=== PATIENT | female | born 1995 | race Caucasian/White ===

== ENCOUNTER 2022-01-28 20:38 | Emergency (ER) | payer MEDICAID, SELFPAY ==
[2022-01-28 20:55] VITALS: BP 115/60; PULSE 82; RESP 18; TEMP 36.6; O2SAT 99; BMI 41.2
--- NOTE | 2022-01-28 21:31 | ED_ITS ---
HPI - General Adult General Chief complaint: Shoulder Injury/Pain Stated complaint: L Shoulder and Arm Pain Time Seen by Provider: 01/28/22 20:52 History of Present Illness HPI narrative: Patient is a 26-year-old woman who for the last week has had pain over the anterior shoulder but the no recent injuries. She has had no fevers no chills. She has had no radicular symptoms. Related Data Home Medications Medication Instructions Recorded Confirmed albuterol sulfate 2.5 mg/3 mL mg 01/28/22 (0.083 %) solution for nebulization albuterol sulfate 90 mcg/actuation INHALATION 01/28/22 aerosol inhaler (Ventolin HFA) buspirone 15 mg tablet mg 01/28/22 cetirizine 10 mg tablet mg 01/28/22 famotidine 20 mg tablet mg 01/28/22 fluticasone propionate 50 INTRANASAL 01/28/22 mcg/actuation nasal spray,suspension hydroxyzine pamoate 25 mg capsule mg 01/28/22 lamotrigine 100 mg tablet mg 01/28/22 lamotrigine 25 mg tablet mg 01/28/22 meclizine 25 mg tablet mg 01/28/22 nystatin 100,000 unit/gram topical TOPICAL 01/28/22 cream ondansetron 4 mg disintegrating mg 01/28/22 tablet prazosin 1 mg capsule mg 01/28/22 venlafaxine 150 mg mg PO 01/28/22 capsule,extended release 24 hr venlafaxine 75 mg capsule,extended mg PO 01/28/22 release 24 hr Allergies Allergy/AdvReac Type Severity Reaction Status Date / Time amoxicillin Allergy Mild Verified 01/28/22 21:03 Penicillanic Sulfone BL Allergy Mild Verified 01/28/22 21:02 Beta-Lactam Review of Systems Status of ROS: Reports: 10 or more systems reviewed and unremarkable except as noted in History and below Exam Narrative: Exam Narrative: EXAM GENERAL: Patient appears comfortable and well. EYES: No scleral icterus. LYMPH: No supraclavicular or cervical lymphadenopathy. SKIN: Visible skin seen during exam normal or with benign process only. EXT: No dependent lower extremity pedal edema. extreme tenderness noted over the right acromioclavicular joint no other palpable abnormalities HEART: Regular rate and rhythm with no murmurs, rubs, or gallops. LUNGS: Clear to auscultation bilaterally with no crackles or wheezes. ABD: Soft, non tender, non distended. PSYCH: Good eye contact, speech is not pressured. Const: Vital Signs, click to edit/add: Vital Signs - 24 hr 01/28/22 20:55 Temperature 97.9 F Pulse Rate [Right Pulse Oximeter] 82 Respiratory Rate 18 Blood Pressure [Ri ght Upper Arm] 115/60 Pulse Oximetry 99 Course Vital Signs Vital signs: Initial Vital Signs Temperature 97.9 F 01/28/22 20:55 Temperature Source Temporal Artery Scan 01/28/22 20:55 Pulse Rate 82 01/28/22 20:55 Pulse Rhythm 01/28/22 20:55 Respiratory Rate 18 01/28/22 20:55 Blood Pressure 115/60 01/28/22 20:55 Blood Pressure Mean 78 01/28/22 20:55 Blood Pressure Position Sitting 01/28/22 20:55 Pulse Oximetry 99 01/28/22 20:55 Oxygen Delivery Method 01/28/22 20:55 Vital Signs Temperature 97.9 F 01/28/22 20:55 Pulse Rate 82 01/28/22 20:55 Respiratory Rate 18 01/28/22 20:55 Blood Pressure 115/60 01/28/22 20:55 Pulse Oximetry 99 01/28/22 20:55 Temperature 97.9 F 01/28/22 20:55 Pulse Rate 82 01/28/22 20:55 Respiratory Rate 18 01/28/22 20:55 Blood Pressure 115/60 01/28/22 20:55 Pulse Oximetry 99 01/28/22 20:55 Discharge Plan Discharge Clinical Impression: Strain of AC joint Patient Disposition: Home, Self-Care Condition: Stable Instructions: Muscle Strain (ED) Additional Instructions: Prednisone 20 mg twice daily for 5 days Activity Level: No Restrictions Discharge Diet: Regular Prescriptions: No Action venlafaxine 75 mg capsule,extended release 24hr PO 0RF Label Comments: Take 1 capsule by mouth in combination with 150mg capsule for a total daily dose of 225mg. Take with food albuterol sulfate 2.5 mg /3 mL (0.083 %) solution for nebulization 0RF Label Comments: Inhale 3 mL (2.5 mg) via a nebulizer every 4 hours if needed for Shortness of Breath cetirizine 10 mg tablet 0RF Label Comments: TAKE ONE TABLET BY MOUTH ONE TIME DAILY prazosin 1 mg capsule 0RF Label Comments: TAKE ONE CAPSULE BY MOUTH ONE TIME DAILY AT BEDTIME venlafaxine 150 mg capsule,extended release 24hr PO 0RF Label Comments: Take 1 capsule once daily with food with the 75 mg capsule for a total daily dose of 225 mg lamotrigine 25 mg tablet 0RF Label Comments: Week 1 & 2: Take 1 tablet (25mg) by mouth once daily; Week 3 & 4: Take 2 tablets (50mg) by mouth once daily; Week 5: Switch to the 100mg tab famotidine 20 mg tablet 0RF Label Comments: TAKE ONE TABLET BY MOUTH TWICE DAILY meclizine 25 mg tablet 0RF Label Comments: TAKE ONE TABLET BY MOUTH THREE TIMES DAILY NEEDED for vertigo nystatin 100,000 unit/gram cream TOPICAL 0RF Label Comments: Apply topically to affected area(s) 2 times daily. albuterol sulfate [Ventolin HFA] 90 mcg/actuation HFA aerosol inhaler INHALATION 0RF Label Comments: INHALE TWO PUFFS BY MOUTH EVERY SIX HOURS NEEDED FOR PERSISTANT COUGH. ondansetron 4 mg tablet,disintegrating 0RF Label Comments: Place 1 Tablet (4 mg) on the tongue every 8 hours if needed for Nausea/Vomiting. fluticasone propionate 50 mcg/actuation spray,suspension INTRANASAL 0RF Label Comments: Inhale 2 Sprays to both nostrils once daily lamotrigine 100 mg tablet 0RF Label Comments: TAKE ONE TABLET BY MOUTH ONE TIME DAILY buspirone 15 mg tablet 0RF Label Comments: TAKE ONE TABLET BY MOUTH TWICE DAILY hydroxyzine pamoate 25 mg capsule 0RF Label Comments: TAKE ONE OR TWO CAPSULES BY MOUTH AT BEDTIME NEEDED for anxiety Follow Up/Referrals: Vicki Rose MD [Primary Care Provider] - Stand Alone Forms: [facility] Info Instructions
[2022-01-28 21:55] VITALS: BP 114/72; PULSE 67; RESP 18; O2SAT 99
== END 2022-01-28 22:04 | disposition home or self-care (01) ==
LOC: ED 21:48
PROVIDERS: Emergency Provider Internal Medicine; PCP Family Medicine
DX: S46.812A Strain of other muscles, fascia and tendons at shoulder and upper arm level, left arm, initial encounter (principal)
CPT/HCPCS: 99282; 99283; 99284

== ENCOUNTER 2022-03-27 16:30 | Outpatient (RCR) | payer MEDICAID, SELFPAY | END 2022-04-25 11:45 | disposition home or self-care (01) | PROVIDERS: PCP Family Medicine; Visit Provider Student in an Organized Health Care Education/Training Program | DX: S46.812A Strain of other muscles, fascia and tendons at shoulder and upper arm level, left arm, initial encounter (principal); Z51.89 Encounter for other specified aftercare | CPT/HCPCS: 97110; 97112; 97140; 97161; 97530 ==

== ENCOUNTER 2022-05-03 15:09 | Emergency (ER) | payer MEDICAID, SELFPAY ==
[2022-05-03 15:53] VITALS: BP 120/78; PULSE 86; RESP 16; TEMP 36.7; O2SAT 100; BMI 41.0
--- NOTE | 2022-05-03 18:51 | ED.GENADULT ---
HPI - General Adult General Chief complaint: Abdominal Pain Stated complaint: Needs CT of abdomen Time Seen by Provider: 05/03/22 18:35 Source: patient Mode of arrival: ambulatory Limitations: no limitations History of Present Illness HPI narrative: 26-year-old female coming in today with abdominal pain. States the pains and present for over a week. The pain is located in the epigastric region wraps around both sides. Moving or eating makes the pain worse. Nothing really seems to make it better. She denies any fevers or chills. She feels nauseated but has not vomited. She has daily/regular bowel movements without discomfort. She denies any urinary symptoms such as frequency, urgency or dysuria. Periods have been normal. Patient was seen 2 days ago and had an abdominal CT scan done. The CT scan was read as punctate calcifications in the left kidney with a small cluster of punctate stones located in the lower pole collecting system. The also some a transient intussusception of the jejunum without mechanical obstruction. This likely represents an incidental transient phenomenon. One could consider GI consult for further evaluation of this finding. No evidence of inflammatory bowel disease. Normal appendix. 3.5 cm simple left ovarian cyst considered normal. Patient also had lab work done which she was told were normal. Patient had a follow-up appointment with her physician today who recommended she go to the ER for repeat CT scan. Patient states that her pain really has not changed a whole lot. It does not make her double over in pain. Again she has normal bowel movements and has not been vomiting. Her past medical history significant for anxiety, depression, mood disorder. She is on a venlafaxine, lamotrigine, buspirone, hydroxyzine, prazosin. She is taking famotidine 20 mg b.i.d. p.r.n.. She has had her gallbladder out. Related Data Home Medications Medication Instructions Recorded Confirmed albuterol sulfate 2.5 mg/3 mL 2.5 mg inhalation Q4H PRN 01/28/22 05/03/22 (0.083 %) solution for nebulization albuterol sulfate 90 mcg/actuation 1 puff inhalation PRN 01/28/22 aerosol inhaler (Ventolin HFA) buspirone 15 mg tablet 10 mg PO BID 01/28/22 05/03/22 cetirizine 10 mg tablet 10 mg PO Q12H 01/28/22 05/03/22 famotidine 20 mg tablet 20 mg PO Q12H 01/28/22 05/03/22 fluticasone propionate 50 2 spray intranasal DAILY 01/28/22 05/03/22 mcg/actuation nasal spray,suspension hydroxyzine pamoate 25 mg capsule 25 mg PO HS PRN 01/28/22 05/03/22 lamotrigine 100 mg tablet 100 mg PO DAILY 01/28/22 05/03/22 lamotrigine 25 mg tablet mg 01/28/22 meclizine 25 mg tablet mg 01/28/22 nystatin 100,000 unit/gram topical 1 applic topical PRN 01/28/22 cream ondansetron 4 mg disintegrating 4 mg PO PRN 01/28/22 tablet prazosin 1 mg capsule 1 mg PO HS 01/28/22 05/03/22 venlafaxine 150 mg 150 mg PO DAILY 01/28/22 05/03/22 capsule,extended release 24 hr venlafaxine 75 mg capsule,extended 75 mg PO DAILY 01/28/22 05/03/22 release 24 hr Previous Rx's Medication Instructions Recorded sucralfate 1 gram tablet (Carafate) 1 g PO QID PRN #60 tabs 05/03/22 Allergies Allergy/AdvReac Type Severity Reaction Status Date / Time amoxicillin Allergy Mild Verified 05/03/22 16:02 Penicillanic Sulfone BL Allergy Mild Verified 05/03/22 16:02 Beta-Lactam Review of Systems Status of ROS: Reports: 10 or more systems reviewed and unremarkable except as noted in History and below PFSH PFS Social History Smoking Status: Current every day smoker Do you use any of these nicotine containing products: None Second hand tobacco smoke exposure: No How often do you have a drink containing alcohol: monthly or less How often do you have six or more drinks on one occasion: Never AUDIT-C Alcohol total score: 1 Non-prescribed substance use: marijuana (any form) Exam Narrative: Exam Narrative: Well-nourished well-developed patient in no acute distress. Alert and oriented. Answers questions appropriately. Mood and affect are appropriate. Thoughts are goal oriented and rational. No tangential or magical thinking noted. Patient speaks in full sentences without needing to catch their breath. Patient does not appear ill or toxic. She ambulates without any difficulty. HEENT: Normocephalic atraumatic. Pupils are equally round reactive to light. Extraocular muscles are intact. Conjunctivae are moist without any icterus noted. Moist mucous membranes. Posterior pharynx is normal. Neck is soft without any lymphadenopathy or thyromegaly. No masses are appreciated. Cardiovascular: Heart is regular rate and rhythm S1 and S2 are present without any murmurs. Lungs: Clear to auscultation bilaterally no wheezes rhonchi or rales are appreciated. Patient takes deep breaths without any discomfort. Abdomen: Soft and nondistended with normal bowel sounds. Patient has epigastric discomfort, negative Strange sign. She has nonspecific discomfort with very light touch of the remainder of the abdomen as well, however, she can be distracted. Extremities: Bilateral lower extremities are without edema. Normal DP and PT pulses. Skin: Well perfused without any obvious rashes. Const: Vital Signs, click to edit/add: Vital Signs - 24 hr 05/03/22 15:53 Temperature 98.0 F Pulse Rate [Right Pulse Oximeter] 86 Respiratory Rate 16 Blood Pressure [Ri ght Upper Arm] 120/78 Pulse Oximetry 100 Oxygen Delivery Me thod Room Air Course Vital Signs Vital signs: Initial Vital Signs Temperature 98.0 F 05/03/22 15:53 Temperature Source Temporal Artery Scan 05/03/22 15:53 Pulse Rate 86 05/03/22 15:53 Respiratory Rate 16 05/03/22 15:53 Blood Pressure 120/78 05/03/22 15:53 Blood Pressure Mean 92 05/03/22 15:53 Blood Pressure Position Sitting 05/03/22 15:53 Pulse Oximetry 100 05/03/22 15:53 Oxygen Delivery Method 05/03/22 15:53 Vital Signs Temperature 98.0 F 05/03/22 15:53 Pulse Rate 86 05/03/22 15:53 Respiratory Rate 16 05/03/22 15:53 Blood Pressure 120/78 05/03/22 15:53 Pulse Oximetry 100 05/03/22 15:53 Oxygen Delivery Method 05/03/22 15:53 Temperature 98.0 F 05/03/22 15:53 Pulse Rate 86 05/03/22 15:53 Respiratory Rate 16 05/03/22 15:53 Blood Pressure 120/78 05/03/22 15:53 Pulse Oximetry 100 05/03/22 15:53 Oxygen Delivery Method 05/03/22 15:53 Medical Decision Making [facility] Narrative Medical decision making narrative: 26-year-old female with epigastric abdominal pain, normal labs per patient and no acute findings on CT scan aside from jejunal intussusception without mechanical obstruction or inflammatory change, likely representing an incidental transient phenomenon. Given that this was done 2 days ago and patient continues to have normal bowel movements, no vomiting and no fevers I do not think a repeat CT scan at this time is necessary. I do recommend she follow up with GI to have a discussion if this needs any further workup. As far as her epigastric pain we discussed the possibility of gastritis or peptic ulcer disease. I would like for her to start taking daily omeprazole 40 mg, Carafate as needed. If she is not feeling better in the next couple weeks an EGD is recommended. Medical Records Medical records reviewed: Yes I reviewed the patient's medical records Discharge Plan Discharge Clinical Impression: Gastritis Patient Disposition: Home, Self-Care Condition: Stable Additional Instructions: Start omeprazole 40 mg p.o. daily. This is an [id number] medication that you can purchase. You should take this for at least 6 weeks. Take Carafate as needed, this is a prescription medication that you will be given a prescription to. Recommend you follow-up your primary care provider this coming week. Return to the ER if your pain gets worse or you develop a fever. Prescriptions: New sucralfate [Carafate] 1 gram tablet 1 g PO QID PRNQty: 60 0RF No Action venlafaxine 75 mg capsule,extended release 24hr 75 mg PO DAILY Label Comments: Take 1 capsule by mouth in combination with 150mg capsule for a total daily dose of 225mg. Take with food albuterol sulfate 2.5 mg /3 mL (0.083 %) solution for nebulization 2.5 mg inhalation Q4H PRN Label Comments: Inhale 3 mL (2.5 mg) via a nebulizer every 4 hours if needed for Shortness of Breath cetirizine 10 mg tablet 10 mg PO Q12H Label Comments: TAKE ONE TABLET BY MOUTH ONE TIME DAILY prazosin 1 mg capsule 1 mg PO HS Label Comments: TAKE ONE CAPSULE BY MOUTH ONE TIME DAILY AT BEDTIME venlafaxine 150 mg capsule,extended release 24hr 150 mg PO DAILY Label Comments: Take 1 capsule once daily with food with the 75 mg capsule for a total daily dose of 225 mg lamotrigine 25 mg tablet Label Comments: Week 1 & 2: Take 1 tablet (25mg) by mouth once daily; Week 3 & 4: Take 2 tablets (50mg) by mouth once daily; Week 5: Switch to the 100mg tab famotidine 20 mg tablet 20 mg PO Q12H Label Comments: TAKE ONE TABLET BY MOUTH TWICE DAILY meclizine 25 mg tablet Label Comments: TAKE ONE TABLET BY MOUTH THREE TIMES DAILY NEEDED for vertigo nystatin 100,000 unit/gram cream 1 applic TOPICAL PRN Label Comments: Apply topically to affected area(s) 2 times daily. albuterol sulfate [Ventolin HFA] 90 mcg/actuation HFA aerosol inhaler 1 puff INHALATION PRN Label Comments: INHALE TWO PUFFS BY MOUTH EVERY SIX HOURS NEEDED FOR PERSISTANT COUGH. ondansetron 4 mg tablet,disintegrating 4 mg PO PRN Label Comments: Place 1 Tablet (4 mg) on the tongue every 8 hours if needed for Nausea/Vomiting. fluticasone propionate 50 mcg/actuation spray,suspension 2 spray INTRANASAL DAILY Label Comments: Inhale 2 Sprays to both nostrils once daily lamotrigine 100 mg tablet 100 mg PO DAILY Label Comments: TAKE ONE TABLET BY MOUTH ONE TIME DAILY buspirone 15 mg tablet 10 mg PO BID Label Comments: TAKE ONE TABLET BY MOUTH TWICE DAILY hydroxyzine pamoate 25 mg capsule 25 mg PO HS PRN Label Comments: TAKE ONE OR TWO CAPSULES BY MOUTH AT BEDTIME NEEDED for anxiety Follow Up/Referrals: Vicki Rose MD [Primary Care Provider] - Stand Alone Forms: [facility] Info Instructions
[2022-05-03 19:20] VITALS: BP 118/74; PULSE 79; RESP 16; TEMP 36.7; O2SAT 100
[2022-05-03 19:21] VITALS: BP 118/74; PULSE 79; RESP 16; TEMP 36.7
== END 2022-05-03 19:22 | disposition home or self-care (01) ==
PROVIDERS: Emergency Provider Family Medicine; PCP Family Medicine
DX: K29.70 Gastritis, unspecified, without bleeding (principal)
CPT/HCPCS: 99283; 99284

== ENCOUNTER 2022-05-10 21:36 | Emergency (ER) | payer MEDICAID, SELFPAY ==
[2022-05-10 21:42] VITALS: BP 111/74; PULSE 80; RESP 18; TEMP 36.4; O2SAT 98
[2022-05-10] MEDS: 0.9 % SODIUM CHLORIDE 1000 ml 1,000 ML IV (22:12)
[2022-05-10] MEDS: KETOROLAC 30 MG/ML inj IVP (22:15)
[2022-05-10] MEDS: ONDANSETRON 2 MG/ML inj 4 MG IVP (22:16)
--- NOTE | 2022-05-10 22:36 | ED_ITS ---
HPI - General Adult General Chief complaint: Flank Pain Stated complaint: Left flank pain, history of kidney stones Time Seen by Provider: 05/10/22 21:42 History of Present Illness HPI narrative: Pt is a 26 year old with a long history of renal lithiasis who presents with left flank pain. Pt was seen approx. 10 days ago at [facility] with similar symptoms and was told that she had a number of small stones on the left which are small enough to pass on there own. Pt states the pain is the same but has worsened over the past 24 hours. No dysuria. No fevers. Pain is in the left flank without radiation. Pt taking tylenol and motrin with limited success. No nausea or vomiting. The only other medical problem is asthma which has been well controlled. Related Data Home Medications Medication Instructions Recorded Confirmed albuterol sulfate 2.5 mg/3 mL 2.5 mg inhalation Q4H PRN 01/28/22 05/03/22 (0.083 %) solution for nebulization albuterol sulfate 90 mcg/actuation 1 puff inhalation PRN 01/28/22 aerosol inhaler (Ventolin HFA) buspirone 15 mg tablet 10 mg PO BID 01/28/22 05/03/22 cetirizine 10 mg tablet 10 mg PO Q12H 01/28/22 05/03/22 famotidine 20 mg tablet 20 mg PO Q12H 01/28/22 05/03/22 fluticasone propionate 50 2 spray intranasal DAILY 01/28/22 05/03/22 mcg/actuation nasal spray,suspension hydroxyzine pamoate 25 mg capsule 25 mg PO HS PRN 01/28/22 05/03/22 lamotrigine 100 mg tablet 100 mg PO DAILY 01/28/22 05/03/22 lamotrigine 25 mg tablet mg 01/28/22 meclizine 25 mg tablet mg 01/28/22 nystatin 100,000 unit/gram topical 1 applic topical PRN 01/28/22 cream ondansetron 4 mg disintegrating 4 mg PO PRN 01/28/22 tablet prazosin 1 mg capsule 1 mg PO HS 01/28/22 05/03/22 venlafaxine 150 mg 150 mg PO DAILY 01/28/22 05/03/22 capsule,extended release 24 hr venlafaxine 75 mg capsule,extended 75 mg PO DAILY 01/28/22 05/03/22 release 24 hr Previous Rx's Medication Instructions Recorded sucralfate 1 gram tablet (Carafate) 1 g PO QID PRN #60 tabs 05/03/22 Allergies Allergy/AdvReac Type Severity Reaction Status Date / Time amoxicillin Allergy Mild Verified 05/03/22 16:02 Penicillanic Sulfone BL Allergy Mild Verified 05/03/22 16:02 Beta-Lactam Review of Systems Status of ROS: Reports: 10 or more systems reviewed and unremarkable except as noted in History and below [facility] Medical History (Updated 05/10/22 @ 23:27 by Yonatan Degroot MD) Asthma Kidney stones Social History Smoking Status: Current every day smoker Do you use any of these nicotine containing products: None Second hand tobacco smoke exposure: No How often do you have a drink containing alcohol: monthly or less How often do you have six or more drinks on one occasion: Never AUDIT-C Alcohol total score: 1 Non-prescribed substance use: marijuana (any form) Exam Narrative: Exam Narrative: EXAM GENERAL: Patient appears comfortable and well. EYES: No scleral icterus. LYMPH: No supraclavicular or cervical lymphadenopathy. SKIN: Visible skin seen during exam normal or with benign process only. EXT: No dependent lower extremity pedal edema. HEART: Regular rate and rhythm with no murmurs, rubs, or gallops. LUNGS: Clear to auscultation bilaterally with no crackles or wheezes. ABD: Soft, non tender, non distended. PSYCH: Good eye contact, speech is not pressured. Const: Vital Signs, click to edit/add: Vital Signs - 24 hr 05/10/22 21:42 Temperature 97.5 F L Pulse Rate [Left P ulse Oximeter] 80 Respiratory Rate 18 Blood Pressure [Ri ght Upper Arm] 111/74 Pulse Oximetry 98 Oxygen Delivery Me thod Room Air Course Course Hospital Course: Pt seen and examined. Pt reluctant to repeat CT scan due to recent scan. Pt treated with normal saline, toradol and zofran. Reevaluation(s) Reevaluation #1: Pt feeling better. UA collected. No signs of systemic infection. Time: 22:54 Reevaluation #2: Pt's UA unremarkable Time: 23:24 Vital Signs Vital signs: Initial Vital Signs Temperature 97.5 F L 05/10/22 21:42 Temperature Source Temporal Artery Scan 05/10/22 21:42 Pulse Rate 80 05/10/22 21:42 Pulse Rhythm 05/10/22 21:42 Respiratory Rate 18 05/10/22 21:42 Blood Pressure 111/74 05/10/22 21:42 Blood Pressure Mean 86 05/10/22 21:42 Blood Pressure Position Sitting 05/10/22 21:42 Pulse Oximetry 98 05/10/22 21:42 Oxygen Delivery Method 05/10/22 21:42 Vital Signs Temperature 97.5 F L 05/10/22 21:42 Pulse Rate 80 05/10/22 21:42 Respiratory Rate 18 05/10/22 21:42 Blood Pressure 111/74 05/10/22 21:42 Pulse Oximetry 98 05/10/22 21:42 Oxygen Delivery Method 05/10/22 21:42 Temperature 97.5 F L 05/10/22 21:42 Pulse Rate 80 05/10/22 21:42 Respiratory Rate 18 05/10/22 21:42 Blood Pressure 111/74 05/10/22 21:42 Pulse Oximetry 98 05/10/22 21:42 Oxygen Delivery Method 05/10/22 21:42 Medical Decision Making MDM Narrative Medical decision making narrative: Pt with a history of renal lithiasis and a recent CT scan showing small stones likely to pass presents with left flank pain. Pt improved with normal saline, toradol and zofran. UA unremarkable. Pt declines repeat CT scan. Pt on a number of meds as an outpt. Will add [place] in the short term with PCP follow up. Differential Diagnosis Differential Diagnosis: Renal Lithiasis, Abd Visceral pain, muscle pain, UTI, Pyelonephritis Lab Data Labs: Lab Results 05/10/22 Range/Units 22:45 Urine Color Yellow (Yellow) Urine Appearance Clear (Clear) Urine pH 6.0 (5.0-8.5) Ur Specific [place] 1.020 (1.000-1.030) Urine Protein Negative (Negative) Urine Glucose (UA) Negative (Negative) Urine Ketones 2+ A (Negative) Urine Blood 2+ A (Negative) Urine Nitrite Negative (Negative) Urine Bilirubin Negative (Negative) Urine Urobilinogen 0.2 (0.2-1.0) Ur Leukocyte Esterase Negative (Negative) Discharge Plan Discharge Clinical Impression: Kidney calculi Condition: Stable Instructions: Kidney Stones (ED) Activity Level: No Restrictions Discharge Diet: Regular Prescriptions: No Action venlafaxine 75 mg capsule,extended release 24hr 75 mg PO DAILY Label Comments: Take 1 capsule by mouth in combination with 150mg capsule for a total daily dose of 225mg. Take with food albuterol sulfate 2.5 mg /3 mL (0.083 %) solution for nebulization 2.5 mg inhalation Q4H PRN Label Comments: Inhale 3 mL (2.5 mg) via a nebulizer every 4 hours if needed for Shortness of Breath cetirizine 10 mg tablet 10 mg PO Q12H Label Comments: TAKE ONE TABLET BY MOUTH ONE TIME DAILY prazosin 1 mg capsule 1 mg PO HS Label Comments: TAKE ONE CAPSULE BY MOUTH ONE TIME DAILY AT BEDTIME venlafaxine 150 mg capsule,extended release 24hr 150 mg PO DAILY Label Comments: Take 1 capsule once daily with food with the 75 mg capsule for a total daily dose of 225 mg lamotrigine 25 mg tablet Label Comments: Week 1 & 2: Take 1 tablet (25mg) by mouth once daily; Week 3 & 4: Take 2 tablets (50mg) by mouth once daily; Week 5: Switch to the 100mg tab famotidine 20 mg tablet 20 mg PO Q12H Label Comments: TAKE ONE TABLET BY MOUTH TWICE DAILY meclizine 25 mg tablet Label Comments: TAKE ONE TABLET BY MOUTH THREE TIMES DAILY NEEDED for vertigo nystatin 100,000 unit/gram cream 1 applic TOPICAL PRN Label Comments: Apply topically to affected area(s) 2 times daily. albuterol sulfate [Ventolin HFA] 90 mcg/actuation HFA aerosol inhaler 1 puff INHALATION PRN Label Comments: INHALE TWO PUFFS BY MOUTH EVERY SIX HOURS NEEDED FOR PERSISTANT COUGH. ondansetron 4 mg tablet,disintegrating 4 mg PO PRN Label Comments: Place 1 Tablet (4 mg) on the tongue every 8 hours if needed for Nausea/Vomiting. fluticasone propionate 50 mcg/actuation spray,suspension 2 spray INTRANASAL DAILY Label Comments: Inhale 2 Sprays to both nostrils once daily lamotrigine 100 mg tablet 100 mg PO DAILY Label Comments: TAKE ONE TABLET BY MOUTH ONE TIME DAILY buspirone 15 mg tablet 10 mg PO BID Label Comments: TAKE ONE TABLET BY MOUTH TWICE DAILY hydroxyzine pamoate 25 mg capsule 25 mg PO HS PRN Label Comments: TAKE ONE OR TWO CAPSULES BY MOUTH AT BEDTIME NEEDED for anxiety sucralfate [Carafate] 1 gram tablet 1 g PO QID PRNQty: 60 0RF Follow Up/Referrals: Vicki Rose MD [Primary Care Provider] - Stand Alone Forms: [facility] Info Instructions
[2022-05-10 23:16] LABS: Appearance Urine Clear (Clear); Bilirubin Urine Negative (Negative); Blood Urine 2+ (Negative); Color Urine Yellow (Yellow); Glucose Urine Negative (Negative); Ketones Urine 2+ (Negative); Leukocyte Esterase Urine Negative (Negative); Nitrite Urine Negative (Negative); Protein Urine Negative (Negative); Urobilinogen Urine 0.2 (0.2-1.0)
[2022-05-10 23:28] LABS: Squamous Epithelial Cell Urine Moderate (None-Few); WBC Urine 0-2 (0-5)
[2022-05-10 23:40] VITALS: BP 132/64; PULSE 80; RESP 18; TEMP 36.7; O2SAT 98
== END 2022-05-10 23:54 | disposition home or self-care (01) ==
LOC: ED 23:38
PROVIDERS: Emergency Provider Internal Medicine; PCP Family Medicine
DX: N20.0 Calculus of kidney (principal)
CPT/HCPCS: 81003; 81015; 96374; 96375; 99283; 99284; J1885; J2405; J7030

== ENCOUNTER 2022-06-07 16:39 | Emergency (ER) | payer MEDICAID, SELFPAY ==
[2022-06-07 16:48] VITALS: BP 136/81; PULSE 50; RESP 18; TEMP 36.6; O2SAT 100; BMI 41.2
--- NOTE | 2022-06-07 17:09 | CRLHL7_ITS ---
For Patients: As a result of the Century Cures Act, medical imaging exams and procedure reports are released immediately into your electronic medical record. You may view this report before your referring provider. If you have questions, please contact your health care provider. INDICATION: Left flank pain, history of stones. TECHNIQUE: CT abdomen and pelvis without contrast. Coronal and sagittal reformats were generated. COMPARISON: CT of the abdomen and pelvis from 08/16/2021, 01/01/2021, and 03/14/2020. FINDINGS: Lower chest: Unremarkable. Liver: Unremarkable. Gallbladder and bile ducts: Surgically absent gallbladder. Normal caliber bile ducts. Spleen: Unremarkable. Pancreas: Unremarkable. Adrenal glands: Unremarkable. No nodules. Kidneys and Ureters: Multiple small renal calculi on the left side. Moderate left hydronephrosis. No left ureteral calculi. No right renal or ureteral calculi. No hydronephrosis. Lymph Nodes and Retroperitoneum: Unremarkable. Vasculature: Unremarkable. GI tract: Unremarkable. Normal in caliber. Normal appendix. Peritoneum/Abdominal Wall: Unremarkable. No free air or free fluid. Pelvic Viscera: Unremarkable. Bladder: Unremarkable. Bones: Unremarkable for age. IMPRESSION: 1. Multiple punctate left renal calculi. 2. Moderate left hydronephrosis, without hydroureter could be related to recently passed stone or UPJ obstruction. 3. No other significant CT abnormality or important change. Please note that all CT scans at this facility use dose modulation, iterative reconstruction, and/or weight-based dosing when appropriate to reduce radiation dose to as low as reasonably achievable. Dictated by Josafat Silvestre MD @ 06/07/2022 6:14:30 PM (Electronically Signed)
--- NOTE | 2022-06-07 17:14 | ED.GENADULT ---
HPI - General Adult General Chief complaint: Flank Pain Stated complaint: kidney pain Time Seen by Provider: 06/07/22 16:57 Source: patient Mode of arrival: ambulatory Limitations: no limitations History of Present Illness HPI narrative: 27-year-old male presents the emergency department with increased left flank pain radiating to the left inguinal area. She has been having intermittent flank pain dull, achy and heavy in her report for the past 3 weeks. She reports that she was evaluated at the [facility]. Unfortunately do not have access to that CT. She was told that she has a cluster of small stones like it was pretty high in the renal calyx area of the left kidney. There were no other worrisome signs. Conservative management was recommended. She has had multiple stones in the past, she has had lithotripsy, stents in the past as well. She had been on preventative medicine at 1 point, no longer using as her urologist had to leave practice. This morning she started having nausea and vomiting which is not typical for her unless she has a stone. She denies any diarrhea, hematemesis, blood in her stools. She states that she has actually been a little more constipated than usual. Daughter recently had an ear infection but no one else has been ill around her. She denies any pertinent travel. She says that she has had some urinary burning and hesitancy for about a week. Denies any potential risk of STD or gynecological symptoms at this time. Eyes excessive alcohol use. She does have a medical marijuana prescription for mental health issues. She did try taking a [place] prior to coming to the emergency department with no significant improvement in symptoms. S medical history notable for depression, anxiety, PTSD. Surgical history notable for cholecystectomy 4 years ago, in 2017. Socially uses medical marijuana, denies any other illicit drug use. No pertinent travel. ROS is notable for the generalized and abdominal and urinary symptoms as above, otherwise denies times 12 systems. Related Data Home Medications Medication Instructions Recorded Confirmed albuterol sulfate 2.5 mg/3 mL 2.5 mg inhalation Q4H PRN 01/28/22 05/03/22 (0.083 %) solution for nebulization albuterol sulfate 90 mcg/actuation 1 puff inhalation PRN 01/28/22 aerosol inhaler (Ventolin HFA) buspirone 15 mg tablet 10 mg PO BID 01/28/22 05/03/22 cetirizine 10 mg tablet 10 mg PO Q12H 01/28/22 05/03/22 famotidine 20 mg tablet 20 mg PO Q12H 01/28/22 05/03/22 fluticasone propionate 50 2 spray intranasal DAILY 01/28/22 05/03/22 mcg/actuation nasal spray,suspension hydroxyzine pamoate 25 mg capsule 25 mg PO HS PRN 01/28/22 05/03/22 lamotrigine 100 mg tablet 100 mg PO DAILY 01/28/22 05/03/22 lamotrigine 25 mg tablet mg 01/28/22 meclizine 25 mg tablet mg 01/28/22 nystatin 100,000 unit/gram topical 1 applic topical PRN 01/28/22 cream ondansetron 4 mg disintegrating 4 mg PO PRN 01/28/22 tablet prazosin 1 mg capsule 1 mg PO HS 01/28/22 05/03/22 venlafaxine 150 mg 150 mg PO DAILY 01/28/22 05/03/22 capsule,extended release 24 hr venlafaxine 75 mg capsule,extended 75 mg PO DAILY 01/28/22 05/03/22 release 24 hr Previous Rx's Medication Instructions Recorded sucralfate 1 gram tablet (Carafate) 1 g PO QID PRN #60 tabs 05/03/22 Allergies Allergy/AdvReac Type Severity Reaction Status Date / Time amoxicillin Allergy Mild Verified 05/03/22 16:02 Penicillanic Sulfone BL Allergy Mild Verified 05/03/22 16:02 Beta-Lactam PFSH [facility] Medical History Asthma Kidney stones Social History Smoking Status: Current every day smoker Do you use any of these nicotine containing products: None Second hand tobacco smoke exposure: No How often do you have a drink containing alcohol: monthly or less How often do you have six or more drinks on one occasion: Never AUDIT-C Alcohol total score: 1 Non-prescribed substance use: marijuana (any form) Exam Const: Vital Signs, click to edit/add: Vital Signs - 24 hr 06/07/22 16:48 06/07/22 18:00 Temperature 97.8 F Pulse Rate [Pulse Oximeter] 50 L 58 L Respiratory Rate 18 Blood Pressure [Le ft Upper Arm] 136/81 97/55 L Pulse Oximetry 100 97 Oxygen Delivery Me thod Room Air Room Air Documenting provider has reviewed patient's vital signs: yes Common normals: no apparent distress General appearance: cooperative, comfortable and well kempt HENMT: Common normals: normocephalic Head and scalp: normocephalic Mouth: oral and palatal mucosa normal Throat: posterior oropharynx normal Eye: Common normals: conjunctivae normal and no scleral icterus Conjunctiva: conjunctiva(e) normal Neck & C-Spine: Common normals: full ROM and no lymphadenopathy Resp: Common normals: normal respiratory effort, no use of accessory muscles and clear to auscultation bilaterally Effort & inspection: able to speak in complete sentences Auscultation: clear to auscultation bilaterally Cardio: Common normals: regular rate, regular rhythm, S1 normal heart sound, S2 normal heart sound, no murmurs and peripheral pulses 2+ throughout Rate: regular rate Rhythm: regular rhythm Heart sounds: S1 normal and S2 normal Peripheral pulses: pulses 2+ throughout GI: Common normals: Normal to inspection, nondistended, normoactive bowel sounds present, soft to palpation, no hepatosplenomegaly and no masses Palpation: soft and no hepatosplenomegaly Other: Mild tenderness in left lower side of abdomen, not focal. Back & Pelvis: Other: Left CVA tenderness noted. Right side normal. Extremity: Common normals: normal to inspection, normal capillary refill and no pedal edema Neuro: Motor exam: no tremor noted and no movement abnormalities noted Psych: Appearance: well kempt Insight: insight good Judgement: judgment good Skin: Common normals: no rashes or lesions noted General skin exam: no rashes or lesions noted Course Vital Signs Vital signs: Initial Vital Signs Temperature 97.8 F 06/07/22 16:48 Temperature Source Temporal Artery Scan 06/07/22 16:48 Pulse Rate 50 L 06/07/22 16:48 Respiratory Rate 18 06/07/22 16:48 Blood Pressure 136/81 06/07/22 16:48 Blood Pressure Mean 99 06/07/22 16:48 Blood Pressure Position Supine 06/07/22 16:48 Pulse Oximetry 100 06/07/22 16:48 Oxygen Delivery Method 06/07/22 16:48 Vital Signs Temperature 97.8 F 06/07/22 16:48 Pulse Rate 50 L 06/07/22 16:48 Respiratory Rate 18 06/07/22 16:48 Blood Pressure 136/81 06/07/22 16:48 Pulse Oximetry 100 06/07/22 16:48 Oxygen Delivery Method 06/07/22 16:48 Temperature 97.8 F 06/07/22 16:48 Pulse Rate 58 L 06/07/22 18:00 Respiratory Rate 18 06/07/22 16:48 Blood Pressure 97/55 L 06/07/22 18:00 Pulse Oximetry 97 06/07/22 18:00 Oxygen Delivery Method 06/07/22 18:00 Medical Decision Making MDM Narrative Medical decision making narrative: Differential diagnosis including gastroenteritis, flare-up of IBS, urinary infection, pancreatitis, kidney stone. Most likely diagnosis kidney stones based on history. Recommend UA, culture. Will treat the vomiting and pain with oxycodone and Zofran. CT scan recommended. Additional lab work to look for other intra-abdominal etiologies as well. Patient agreeable to plan. CT scan showing hydronephrosis but no stone. Shortly after I evaluated patient, she went to the bathroom and clearly noted that she passed several stones. Pain is improved with the oxycodone and Zofran though not completely. She accepts my offer for a dose of Toradol prior to discharge. We reviewed the lab findings, CT findings. As long as her symptoms improve and she does not develop any symptoms of infection, this should resolve without complication. Alarm symptoms appropriately reviewed, she verbalized understanding and agreement Lab Data Lab results reviewed: Yes I reviewed the patient's lab results Labs: Lab Results 06/07/22 06/07/22 06/07/22 Range/Units 17:09 17:24 17:24 WBC 11.33 H (4.50-11.00) K/uL RBC 5.36 H (4.00-5.20) m/uL Hgb 16.1 H (12.0-16.0) gm/dL Hct 47.8 (33.0-51.0) % MCV 89 (80-100) fL MCH 30 (26-34) pg MCHC 34 (32-36) gm/dL RDW Coeff of Tee 12.8 (11.5-15.5) % Plt Count 295 (140-440) K/uL Neut % (Auto) 74.7 H (42.0-72.0) % Lymph % (Auto) 19.3 L (20-44) % [place] % (Auto) 5.0 (0.0-11.0) % Eos % (Auto) 0.5 (0.0-7.0) % Baso % (Auto) 0.4 (0.0-3.0) % Neut # (Auto) 8.50 H (1.7-7.0) K/uL Lymph # (Auto) 2.20 (0.90-2.90) K/uL [place] # (Auto) 0.60 (0.00-0.90) K/UL Eos # (Auto) 0.10 (0.00-0.50) K/uL Baso # (Auto) 0.00 (0.00-0.30) K/uL Abs Immat Gran (auto) 0.00 (0.00-0.30) K/uL Imm/Tot Granulo (auto) 0.1 % Sodium 142 (135-149) mmol/L Potassium 3.8 (3.6-5.1) mmol/L Chloride 110 (96-114) mmol/L Carbon Dioxide 24 (20-32) mmol/L BUN 14 (5-24) mg/dL Creatinine 0.8 (0.5-1.5) mg/dL Estimated Creat Clear 146.37 Estimated GFR 102 ml/min Glucose 114 (60-115) mg/dL Calcium 9.5 (8.4-10.6) mg/dL Total Bilirubin 0.5 (0.1-1.5) mg/dL AST 24 (12-35) U/L ALT 26 (4-35) U/L Alkaline Phosphatase 105 (40-150) U/L C-Reactive Protein < 0.5 L (0.5-1.0) mg/dL Total Protein 7.4 (6.0-8.3) g/dL Albumin 4.8 (3.3-5.0) g/dL Lipase 60 (23-300) U/L HCG, Qual Negative (Negative) Urine Color Yellow (Yellow) Urine Appearance Clear (Clear) Urine pH 7.0 (5.0-8.5) Ur Specific [place] 1.025 (1.000-1.030) Urine Protein 1+ A (Negative) Urine Glucose (UA) Negative (Negative) Urine Ketones 2+ A (Negative) Urine Blood 3+ A (Negative) Urine Nitrite Negative (Negative) Urine Bilirubin Negative (Negative) Urine Urobilinogen 0.2 (0.2-1.0) Ur Leukocyte Esterase Negative (Negative) Urine RBC 10-25 A (0-2) Ur Squamous Epith Cells Few (None-Few) Urine Bacteria Few A (None) Imaging Data CT scan - pelvis: Attestation: I have reviewed the pertinent imaging results. My impression: Left-sided hydronephrosis but no visible stone. No increased enhancement of the kidneys to suggest infection, no other obvious abnormalities Radiologist's impression: IMPRESSION: 1. Multiple punctate left renal calculi. 2. Moderate left hydronephrosis, without hydroureter could be related to recently passed stone or UPJ obstruction. 3. No other significant CT abnormality or important change. Discharge Plan Discharge Clinical Impression: Calculus, ureteral Patient Disposition: Home w/ Parent or Adult Condition: Improved Instructions: Ureteral Stones (ED) Additional Instructions: The CT scan shows dilation of the ureter but no stone. I agree with you that I think you pass the stone here in the emergency department in the bathroom. We do not need to collect that stone run any additional testing. It is common does still have some achy pain after passing the stone but hopefully the spasm and cramps and vomiting will improve. I have given you a limited supply of oxycodone for severe pain and Zofran also known as ondansetron for nausea and vomiting. I am hoping that you do not need these. Please use ibuprofen and Tylenol primarily for pain. Your next dose of ibuprofen could be given at around 1:00 a.m.. In you to push fluids. There were no signs of infection, kidney damage or other abnormalities. This is all reassuring. Sometimes these can get infected, we are not seeing any signs of this thus far. If you start running high fevers and have weakness and increase in symptoms, please seek medical care. Activity Level: No Restrictions Discharge Diet: Regular Prescriptions: No Action venlafaxine 75 mg capsule,extended release 24hr 75 mg PO DAILY Label Comments: Take 1 capsule by mouth in combination with 150mg capsule for a total daily dose of 225mg. Take with food albuterol sulfate 2.5 mg /3 mL (0.083 %) solution for nebulization 2.5 mg inhalation Q4H PRN Label Comments: Inhale 3 mL (2.5 mg) via a nebulizer every 4 hours if needed for Shortness of Breath cetirizine 10 mg tablet 10 mg PO Q12H Label Comments: TAKE ONE TABLET BY MOUTH ONE TIME DAILY prazosin 1 mg capsule 1 mg PO HS Label Comments: TAKE ONE CAPSULE BY MOUTH ONE TIME DAILY AT BEDTIME venlafaxine 150 mg capsule,extended release 24hr 150 mg PO DAILY Label Comments: Take 1 capsule once daily with food with the 75 mg capsule for a total daily dose of 225 mg lamotrigine 25 mg tablet Label Comments: Week 1 & 2: Take 1 tablet (25mg) by mouth once daily; Week 3 & 4: Take 2 tablets (50mg) by mouth once daily; Week 5: Switch to the 100mg tab famotidine 20 mg tablet 20 mg PO Q12H Label Comments: TAKE ONE TABLET BY MOUTH TWICE DAILY meclizine 25 mg tablet Label Comments: TAKE ONE TABLET BY MOUTH THREE TIMES DAILY NEEDED for vertigo nystatin 100,000 unit/gram cream 1 applic TOPICAL PRN Label Comments: Apply topically to affected area(s) 2 times daily. albuterol sulfate [Ventolin HFA] 90 mcg/actuation HFA aerosol inhaler 1 puff INHALATION PRN Label Comments: INHALE TWO PUFFS BY MOUTH EVERY SIX HOURS NEEDED FOR PERSISTANT COUGH. ondansetron 4 mg tablet,disintegrating 4 mg PO PRN Label Comments: Place 1 Tablet (4 mg) on the tongue every 8 hours if needed for Nausea/Vomiting. fluticasone propionate 50 mcg/actuation spray,suspension 2 spray INTRANASAL DAILY Label Comments: Inhale 2 Sprays to both nostrils once daily lamotrigine 100 mg tablet 100 mg PO DAILY Label Comments: TAKE ONE TABLET BY MOUTH ONE TIME DAILY buspirone 15 mg tablet 10 mg PO BID Label Comments: TAKE ONE TABLET BY MOUTH TWICE DAILY hydroxyzine pamoate 25 mg capsule 25 mg PO HS PRN Label Comments: TAKE ONE OR TWO CAPSULES BY MOUTH AT BEDTIME NEEDED for anxiety sucralfate [Carafate] 1 gram tablet 1 g PO QID PRNQty: 60 0RF Follow Up/Referrals: Vicki Rose MD [Primary Care Provider] - Stand Alone Forms: [employer] Info Instructions
[2022-06-07 17:21] LABS: Appearance Urine Clear (Clear); Bilirubin Urine Negative (Negative); Blood Urine 3+ (Negative); Color Urine Yellow (Yellow); Glucose Urine Negative (Negative); Ketones Urine 2+ (Negative); Leukocyte Esterase Urine Negative (Negative); Nitrite Urine Negative (Negative); Protein Urine 1+ (Negative); Specific Gravity Urine 1.025 (1.000-1.030); Urobilinogen Urine 0.2 (0.2-1.0)
[2022-06-07 17:24] LABS: HCG Qualitative* Negative (Negative)
[2022-06-07] MEDS: ONDANSETRON ODT 4 MG TAB PO (17:34)
[2022-06-07] MEDS: OXYCODONE 5 MG TABLET 10 MG PO (17:34)
[2022-06-07 17:35] LABS: Basophils Percent Auto 0.4 % (0.0-3.0); Eosinophils Percent Auto 0.5 % (0.0-7.0); Hematocrit 47.8 % (33.0-51.0); Hemoglobin* 16.1 gm/dL (12.0-16.0); Immature Granulocytes Pct Auto 0.1 %; Lymphocytes Percent Auto 19.3 % (20-44); Mean Corpuscular HGB Conc 34 gm/dL (32-36); Mean Corpuscular Hemoglobin 30 pg (26-34); Mean Corpuscular Volume 89 fL (80-100); Neutrophils Percent Auto 74.7 % (42.0-72.0); Platelet Count* 295 K/uL (140-440); RDW Coefficient of Variation % 12.8 % (11.5-15.5); Red Blood Count 5.36 m/uL (4.00-5.20); White Blood Count* 11.33 K/uL (4.50-11.00)
[2022-06-07 17:36] LABS: Slide Review Reflex No
[2022-06-07 17:50] LABS: Albumin* 4.8 g/dL (3.3-5.0); Chloride* 110 mmol/L (96-114); Potassium* 3.8 mmol/L (3.6-5.1); Sodium* 142 mmol/L (135-149)
[2022-06-07 17:52] LABS: Carbon Dioxide* 24 mmol/L (20-32); Creatinine* 0.8 mg/dL (0.5-1.5); Est. Creatinine Clearance* 146.37; Estimated Glomerular Filt Rate 102 ml/min
[2022-06-07 17:53] LABS: Alkaline Phosphatase* 105 U/L (40-150); Aspartate Amino Transferase* 24 U/L (12-35); Bilirubin Total* 0.5 mg/dL (0.1-1.5); Blood Urea Nitrogen* 14 mg/dL (5-24); Lipase* 60 U/L (23-300); Total Protein* 7.4 g/dL (6.0-8.3)
[2022-06-07 17:54] LABS: Alanine Aminotransferase* 26 U/L (4-35); Calcium* 9.5 mg/dL (8.4-10.6); Glucose* 114 mg/dL (60-115)
[2022-06-07 17:56] LABS: C Reactive Protein* < 0.5 mg/dL (0.5-1.0)
[2022-06-07 18:00] VITALS: BP 97/55; PULSE 58; O2SAT 97
--- OUTSIDE RECORDS SUMMARY | 2022-06-07 18:03 | XMS_ITS | Clinical Summary ---
:1995 Author Organization [facility] [place] [address] Care Team Providers Name Role Phone Vicki Rose MD Primary Care Provider Allergies Active Allergy Reactions Severity Noted Date Comments Amoxicillin Hives, Throat High 08/22/2014 Patient tolera kasey Swelling/Closing cefazolin ( Sep 2016) Kiwi *Unknown 11/07/2017 Tongue marquez Fd And C Red No.22 Throat High 12/11/2016 (Eosin) Swelling/Closing Penicillins Throat High 10/23/2009 Throat swelling Swelling/Closing Patient tolerat ed cefazolin (Sep 2016) Medications Medication Sig Dispensed Refills Start End Date Status Date nebulizer For home use. 1 Kit 0 Active accessories Length of 0 kitIndications: need: 99 Mild intermittent asthma without complication ibuprofen (MOTRIN Take 200 mg by 0 Active ORAL) mouth every 6 hours if needed. Reported by pt ketoconazole 2% Apply 120 g 5 Acti ve topical (NIZORAL) topically to 1 creamIndications: affected Tinea versicolor area(s) once daily. meclizine Take 1 Tablet 30 Tablet 0 Active (ANTIVERT) 25 mg (25 mg) by 1 tabletIndications: mouth 3 times Vertigo daily if needed for Vertigo. albuterol Inhale 3 mL 3 mL 0 Active (PROVENTIL) 0.083 % (2.5 mg) via a 2 neb nebulizer solutionIndications every 4 hours : acute asthma if needed for attack Shortness of Breath 1st choice or Shortness of Breath 2nd choice. Inhale 2.5 mg via a nebulizer each time ondansetron (ZOFRAN Place 1 Tablet 30 Tablet 0 Active ODT) 4 mg (4 mg) on the 2 disintegrating tongue every 8 tabletIndications: hours if Nausea and needed for vomiting, Nausea/Vomitin unspecified g. vomiting type nystatin Apply 30 g 5 Active (MYCOSTATIN) topically to 2 creamIndications: affected Yeast infection of area(s) 2 the skin times daily. nystatin powder Apply 1 Strip 60 g 2 Active (MYCOSTATIN) topically to 2 powderIndications: affected Yeast infection of area(s) 3 the skin times daily. cetirizine (ZYRTEC) TAKE ONE 60 Tablet 0 Active 10 mg TABLET BY 2 tabletIndications: MOUTH ONE TIME Seasonal allergies DAILY CPAPIndications: New CPAP 1 Each Act rikki Obstructive sleep machine for 2 apnea home use at pressure: 5-16 cmw , Heated humidifier x 1 q 5 yr, Humidifier chamber x 1 q 6 mo, Full face mask x1 q 3mos, with cushion x 1 q mo, Heated tubing x 1 q 3 mo, Headgear x 1 q 6 mo, Filters: Disposable x 2 q mo non-disposable filters x1 q 6mo, Length of Need: 99 months, Frequency of use: Daily albuterol HFA INHALE TWO 36 g 0 Activ e (PRO-AIR; VENTOLIN; PUFFS BY MOUTH 2 PROVENTIL) 90 EVERY SIX mcg/actuation HOURS inhalerIndications: NEEDED for Mild intermittent persistent asthma without cough complication fluticasone (50 mcg Inhale 2 16 g 0 Active per actuation) Sprays to both 2 nasal solution nostrils once (FLONASE)Indication daily s: Seasonal allergies famotidine (PEPCID) TAKE ONE 180 Tablet 1 Active 20 mg TABLET BY 2 tabletIndications: MOUTH TWICE Gastric reflux DAILY busPIRone (BUSPAR) Take 1 Tablet 180 Tablet 0 Active 15 mg (15 mg) by 2 tabletIndications: mouth two Moderate recurrent times daily. major depression (HC) lamoTRIgine Take 1 Tablet 90 Tablet 0 Acti ve (LaMICtal) 100 mg (100 mg) by 2 tabletIndications: mouth once Moderate recurrent daily. major depression (HC) prazosin Take 1 Capsule 90 Capsule 0 Acti ve (MINIPRESS) 1 mg (1 mg) by 2 capsuleIndications: mouth at PTSD bedtime. (post-traumatic stress disorder) venlafaxine Take 1 capsule 90 Capsule 0 Ac tive (EFFEXOR XR) 150 mg daily with the 2 Extended-Release 75 mg capsule capsuleIndications: for a total Moderate recurrent daily dose of major depression 225 mg. Take (HC) with food venlafaxine Take 1 capsule 90 Capsule 0 Ac tive (EFFEXOR XR) 75 mg with the 150 2 cp24 mg capsule for Extended-Release a total daily capsuleIndications: dose of 225 Moderate recurrent mg. Take with major depression food (HC) busPIRone (BUSPAR) Take 1 Tablet 60 Tablet 1 0 Discontinued 15 mg (15 mg) by 2 22 (Reorder tabletIndications: mouth two ( E-cancel not Moderate recurrent times daily. sent)) major depression (HC) venlafaxine Take 1 capsule 30 Capsule 1 06/03/20 Di scontinued (EFFEXOR XR) 75 mg with the 150 2 22 (Reorder cp24 mg capsule for (E-ca ncel not Extended-Release a total daily sent)) capsuleIndications: dose of 225 Moderate recurrent mg. Take with major depression food (HC) venlafaxine Take 1 capsule 30 Capsule 1 06/03/20 Di scontinued (EFFEXOR XR) 150 mg daily with the 2 22 (Reorder Extended-Release 75 mg capsule (E-cancel not capsuleIndications: for a total sent)) Moderate recurrent daily dose of major depression 225 mg. Take (HC) with food prazosin Take 1 Capsule 90 Capsule 0 06/03/20 Disc ontinued (MINIPRESS) 1 mg (1 mg) by 2 22 (Re order capsuleIndications: mouth at (E-cancel not PTSD bedtime. sent)) (post-traumatic stress disorder) lamoTRIgine Take 1 Tablet 30 Tablet 1 06/03/20 Disc ontinued (LaMICtal) 100 mg (100 mg) by 2 22 (Reorder tabletIndications: mouth once (E-cancel not Moderate recurrent daily. 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 S/P section 02/25/2017 Pyelonephritis affecting 09/13/2016 ADHD/LD 12/05/2002 Asthma 12/05/2002 Ureteral polyp Resolved Problems Problem Noted Date Resolved Date Anxiety and depression 12/02/2018 12/17/2019 MARCELO (generalized anxiety disorder) 12/02/201812/16 History of attention deficit disorder 12/02/2018 History of borderline personality disorder 12/02/2018 12/17/2019 Depression 12/17/2019 Encounters Date Type Specialty Care Team Description 06/04/2022 Telemedicine Elizabeth Meza Telehealth; Follow Up CASSIUS Roy 2022 Travel 05/03/2022 Office Visit Guanaco Mackey Consult (Unabl e to have MD Zeeshan bowel movement for 5-6 days, sharp pain/pressure i n abdomen, nausea ) 05/03/2022 Travel 05/01/2022 Ancillary Procedure 05/01/2022 Office Visit Elizabeth Meza Abdominal Claudia n (pelvic DENIS Preciado pain through ab domen- 2 days ago, ); Na usea (2 days ago); Fati hamilton (2 days- weak and tired) 05/01/2022 Travel 05/01/2022 Telephone Elizabeth Meza PA 04/30/2022 Travel 04/30/2022 Nurse Triage Elizabeth Meza Overdose, A ccidental CASSIUS Roy 04/15/2022 Office Visit Jo Michaud Wrist Pain/pro blem DENIS [place] (Patient state s having bilateral carpa l tunnel pain. Has not b een diagnosed but w as told with symptoms i t looks like carpal jenaro devi./Woke up crying from pain. Took tylenol wi th no relief. Wrist b races not helping./Pain s tarts at wrist, goes tete n to tips of fingers and up to shoulder.) 04/15/2022 Travel 04/10/2022 Telemedicine Elizabeth Meza Telehealth (); CASSIUS Roy Medication Delilah gement 04/10/2022 Travel 03/12/2022 Telemedicine Neena Eric, Sleep Fol low-up (Cpap REAL ESTATE SALESPERSON f/u); Telehealt h (Virtual visit, no vitals taken.) 03/08/2022 Travel 03/08/2022 Vicki Boudreaux, Mickey michael MD (Famotidine) from Last 3 Months Immunizations Name Administration Dates Next Due DTaP 11/29/1998, 09/05/1994, 1993, 1993, 1993 Hepatitis A (Peds) 09/09/2007, 01/13/2007 Hepatitis B (Peds) 04/26/1994, 1993, 1993 Hib Conjugate, Unspecified 1993 Human Papilloma Virus Vaccine 05/23/2010, 10/23/2009, 2008 Inactivated Polio Vaccine 09/05/1994, 1993, 1993 , 1993 Influenza, IIV3 (Age >=3 years) 04/22/2012, 04/17/2011, 08/2008, 2008 Influenza, IIV4 03/15/2020, 04/19/2019, 03/24/2018, 02/28/2016, 05/09/2014 Influenza, IIV4 (=>6mos) MDV 04/30/2017 Influenza,LAIV4 Live Intranasal 05/23/2010, 05/18/2007 (Flumist) MMR 11/29/1998, 09/05/1994 Meningococcal Vaccine (Menactra) 01/13/2007 Meningococcal Vaccine (Menveo) 08/22/2011 Tdap 12/04/2016, 05/09/2014, 10/09/2004 Varicella Vaccine 01/13/2007, 11/29/1998 Family History Medical History Relation Name Comments Good Health Brother Anxiety disorder Father Depression Father Neural tube defect Father Anxiety disorder Maternal Grandmother Cancer Maternal Grandmother Depression Maternal Grandmother Anxiety disorder Mother Depression Mother Good Health Mother Good Health Sister Mental illness Sister ?borderline vs b ipolar. seeing therapist at [facility]. Relation Name Status Comments Brother Alive Father Alive Maternal Grandmother Mother Alive Sister Alive Social History Tobacco Use Types Packs/Day Years Used Date Light Tobacco Smoker Cigarettes 0.02 Started : 07/20/2016 Smokeless Tobacco: Never Used Tobacco Cessation: Ready to Quit: Yes; C ounseling Given: Yes Comments: Very rare Alcohol Use Standard Drinks/Week Comments Yes 0 (1 standard drink = 0.6 oz pure alcoho l) Occ Alcohol Habits Answer Date Recorded How often do you have a drink containing alcohol? Monthly or less 07/20/2019 How many drinks containing alcohol do you have on a 1 or 2 07/20/2019 typical day when you are drinking? How often do you have six or more drinks on one Never 08/17/2019 occasion? 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 Obstetrics History Para Term AB IAB SAB Ectopic Multiple Living Live Births 1 1 1 0 0 0 0 0 0 1 1 Date Outcome GA Total Labor/2nd/3rd Weight Sex Delivery Anes PTL Veronica A 1 A5 Name Clin Labor 02/23 Term 39w F 6d ng Last Filed Vital Signs Vital Sign Reading Time Taken Comments Blood Pressure 109/59 05/03/2022 2:34 PM CDT Pulse 101 05/03/2022 2:34 PM CDT Temperature 36.8 ??C (98.2 ??F) 04/15/2022 10:44 AM CDT Respiratory Rate 16 07/09/2021 4:15 PM TRANSCRIPTION SPECIALIST Oxygen Saturation 97% 05/03/2022 2:34 PM CDT Inhaled Oxygen Concentration - - Weight 89 kg (196 lb 3.2 oz) 05/03/2022 2:34 PM CDT Height 149 cm (4' 10.66) 11/05/2021 9:57 AM CDT Body Mass Index 40.09 11/05/2021 9:57 AM CDT Plan of Treatment Upcoming Encounters Date Type Specialty Care Team Description 06/27/2022 Office Visit Lino Weeks MD [address] [facility] [place], [place] [address] (Wo rk) 08/13/2022 Telemedicine Elizabeth Meza, CASSIUS [address] [place], [place] [address] (Wo rk) Health Maintenance Due Date Last Done Comments COVID-19 vaccine series (#1) 1993 Pneumococcal series for age 19-64 1999 (1 - PCV) Hepatitis C screening for age 1106/01/2011 18-79 Influenza for age 9-49 03/07/2022 03/15/2020, 04/19/2019, 03/24/2018, Additional history exists BMI (ht and wt on same day) for 11/05/2022 11/05/2021, 10/06, age 18+ 08/17/2021, Additional history exists Pap test for age 21-65 03/15/2023 03/15/2020, 05/09/2014 Depression screening for age 12+ 06/04/2023 06/04/2022, 11/2021, 02/21/2022, Additional history exists Tetanus booster 12/04/2026 12/04/2016, 05/09/2014, 10/09/2004 Tdap Completed 12/04/2016, 05/09/2014, 10/09/2004 HIV for age 15-65 Completed 05/01/2022 Medical Devices Implanted Type Area Roof Promenade Tile Setter Device Shelf Model / Identifier Expiration Serial / Lot Date Stent Uret [id number] Contour - [id number] Left: [facility] Urolo gy 10/11/2019 [id number] / Implanted: Qty: 1 on 11/07/2017 by Rom reveles, Peterson Richard MD at [facility] Ureter / [id number] Stent Uret [id number] Contour - [id number] Left: [employer] Urolo gy [id number] / Implanted: Qty: 1 on 01/12/2021 by Zeeshan Pruett MD at [facility] Ureter / [id number] Procedures Procedure Name Priority Date/Time Associated Diagnosis Comme nts CBC WITH AUTO Routine 05/01/2022 2:33 PM Abdominal pain, Resul ts for this DIFFERENTIAL CDT generalized procedure are i n the results section. TREPONEMA PALLIDUM Routine 05/01/2022 2:33 PM Abdominal pain, Results for this CDT generalized procedure are i n the results section. ANTI HIV 1/2 Routine 05/01/2022 2:33 PM Abdominal pain, Result s for this CDT generalized procedure are i n the results section. CBC WITH AUTO Routine 05/01/2022 2:33 PM Abdominal pain, Resul ts for this DIFFERENTIAL CDT generalized procedure are i n the results section. CT ABDOMEN PELVIS YADIRA 05/01/2022 2:27 PM Abdominal pain, R esults for this STONE PROTOCOL WO CDT generalized procedure are in the results section. GC CHLAMYDIA TRACH Routine 05/01/2022 2:10 PM Abdominal pain, Results for this PROBE CDT generalized procedure are i n the results section. TRICHOMONAS, STONE, Routine 05/01/2022 2:10 PM Abdominal claudia n, Results for this AND BACTERIAL CDT generalized procedure are in VAGINOSIS BY RAHDA the results section. URINE CULTURE Add On 05/01/2022 1:35 PM Abdominal pain, Resul ts for this CDT generalized procedure are i n the results section. URINALYSIS Routine 05/01/2022 1:35 PM Abdominal pain, Result s for this MICROSCOPIC CDT generalized procedure are i n the results section. UA W/ SEDIMENT EXAM Routine 05/01/2022 1:35 PM Abdominal pain, Results for this REFLEXED PER CRITERIA CDT generalized proced ure are in the results section. from Last 3 Months Results (ABNORMAL) CBC WITH AUTO DIFFERENTIAL (05/01/2022 2:33 PM CDT) [facility] Method Time Signature WHITE BLOOD 9.0 4.5 - 11.0 05/01/2022 [facility] COUNT thou/cu mm 2:38 PM CDT [facility] RED BLOOD COUNT 5.09 4.00 - 05/01/2022 [facility] 5.20 2:38 PM CDT [place] mil/cu mm CLINIC HEMOGLOBIN 15.5 12.0 - 05/01/2022 [facility] 16.0 g/dL 2:38 PM CDT [facility] HEMATOCRIT 45.0 33.0 - 05/01/2022 [facility] 51.0 % 2:38 PM CDT [facility] MCV 88 80 - 100 05/01/2022 [facility] fL 2:38 PM CDT [facility] MCH 30.5 26.0 - 05/01/2022 [facility] 34.0 pg 2:38 PM CDT [facility] MCHC 34.4 32.0 - 05/01/2022 [facility] 36.0 g/dL 2:38 PM CDT [facility] RDW 14.0 11.5 - 05/01/2022 [facility] 15.5 % 2:38 PM CDT [facility] PLATELET COUNT 260 140 - 440 05/01/2022 [facility] thou/cu mm 2:38 PM CDT [facility] MPV 10.0 6.5 - 11.0 05/01/2022 [facility] fL 2:38 PM CDT [facility] % NEUT 51.5 % 05/01/2022 [facility] 2:38 PM CDT [facility] % LYMPH 38.8 % 05/01/2022 [facility] 2:38 PM CDT [facility] % MONO 7.5 % 05/01/2022 [facility] 2:38 PM CDT [facility] % EOS 1.8 % 05/01/[address] [facility] 2:38 PM CDT [facility] % BASO 0.4 % 05/01/2022 [facility] 2:38 PM CDT [facility] ABSOLUTE 4.6 1.7 - 7.0 05/01/2022 [facility] NEUTROPHILS thou/cu mm 2:38 PM CDT [facility] ABSOLUTE 3.5 (H) 0.9 - 2.9 05/01/2022 [facility] LYMPHOCYTES thou/cu mm 2:38 PM CDT [facility] ABSOLUTE 0.7 <0.9 05/01/2022 [facility] MONOCYTES thou/cu mm 2:38 PM CDT [facility] ABSOLUTE 0.2 <0.5 05/01/2022 [facility] EOSINOPHILS thou/cu mm 2:38 PM CDT [facility] ABSOLUTE 0.0 <0.3 05/01/2022 [facility] BASOPHILS thou/cu mm 2:38 PM CDT [facility] Specimen Anatomical Collection Method / Collection Time Recei yimi Time (Source) Location / Volume Laterality Blood BLOOD SPECIMEN / Venipuncture / 05/01/2022 2:33 2021 2:34 Unknown Unknown PM CDT PM CDT Elizabeth BARRIOS HEMATOLOGY Performing Organization Address City/State/ZIP Code Phon e Number [facility] [address] [place] [address] TREPONEMA PALLIDUM (05/01/2022 2:33 PM CDT) Analysis Performed At Patho logist Time Signature TREPONEMA Negative Negative 05/02/2022 [facility] PALLIDUM 9:58 AM CDT [facility] Specimen Anatomical Collection Method / Collection Time Recei yimi Time (Source) Location / Volume Laterality Blood BLOOD SPECIMEN / Venipuncture / 05/01/2022 2:33 2021 2:34 Unknown Unknown PM CDT PM CDT Elizabeth BARRIOS SEND OUTS Performing Organization Address City/State/ZIP Code Phon e Number [employer] [address] [place] [address] LAB[facility]ORY[facility] 1999 LABORATORY ANTI HIV 1/2 (05/01/2022 2:33 PM CDT) Patholo gist Method Time Signature HIV-1/HIV-2 Non-Reacti Non-Reacti 05/04/2022 [facility] ANTIBODY ve ve 1:55 PM CDT [facility] Comment: HIV-1 p24 and HIV-1/HIV-2 Ab no t detected. Specimen Anatomical Collection Method / Collection Time Recei yimi Time (Source) Location / Volume Laterality Blood BLOOD SPECIMEN / Venipuncture / 05/01/2022 2:33 2021 2:34 Unknown Unknown PM CDT PM CDT Elizabeth BARRIOS SEND OUTS Performing Organization Address City/State/ZIP Code Phon e Number [employer] [address] [place] [address] [facility] [address] ABDOMEN PELVIS STONE PROTOCOL WO (05/01/2022 2:27 PM CDT) Anatomical Region Laterality Modality Abdomen, Pelvis, AORTA, LIVER, SPLEEN Co mputed Tomography Specimen (Source) Anatomical Collection Method Collection Time Re ceived Time Location / / Volume Laterality 05/01/2022 4:09 PM CDT Narrative 05/01/2022 4:09 PM CDT For Patients: ??As a result of the Cures Act, medical imaging exams and procedure report s are released immediately into your [facility] medical record. ??You may view this report before your referring provider. ??If you have questions, please contact your health care provider. Indication: Abdominal pain, generalized Technique: Noncontrast CT abdomen and pelvis Please note that all CT scans at this [facility] use dose modulation, iterative reconstruction, and/or weight-based dosing when appropriate to reduce radiation dose to as low as reasonably achievable. Comparison: 10/31/2020 Findings: Punctate calcifications are present with in the left kidney with a small cluster of punctate stones located in the lower pole collecting system. These findings are present a combination of residual stone s and treated stone within the lower todd e. No hydronephrosis. Similar appearance of left parapelvic cysts and extrarenal pelvis. Right kidney normal. The ureters are normal. Normal bladder. There is a s imple left ovarian cyst measuring 3.5 cm . Right ovary is unremarkable. The uterus is anteverted. No large uterine fibroid. No pelvic free fluid or abscess. No free air or inflammatory change. Normal ana luisa endix. Large bowel normal. On series 2, image 69, there is a transient intussusception of the jejunum without mechanical obstruction. The adrenal glands are normal. The gallbladder is absent. Liver is u nremarkable. Normal spleen. Lung bases a re clear. Normal osseous structures. Impression: Jejunal intussusception without hvac design mechanical engineer al obstruction or inflammatory change. This likely represents an incidental transient phenomenon. One could consider a GI consult for further evaluation of this f inding. No evidence of inflammatory martir l disease. Normal appendix. 3.5 cm simple left ovarian cyst. This is considered normal. Numerous punctate stone material through out the left kidney without hydronephrosis. Chronic left renal parapelvic cysts and extrarenal pelvis. No perinephric stranding to suggest infection/inflammation. Please note that all CT scans at this [facility] use dose modulation, iterative reconstruction, and/or weight-based dosing when appropriate to reduce radiation dose to as low as reasonably achievable. Dictated by Dwaine Little MD @ May 01 ??4:09PM (Electronically Signed) ?? Procedure Note Dwaine Little MD - 05/01/2022For matting of this note might be different from the original. For Patients: As a result of the ntury Cures Act, medical imaging exams and procedure reports are released immediately into your electronic medical record. You may view this report before your referring provider. If you have questions, please contact [facility] care provider. Indication: Abdominal pain, generalized Technique: Noncontrast CT abdomen and pelvis Please note that all CT scans at this [facility] use dose modulation, iterative reconstruction, and/or weight-based dosing when appropriate to reduce radiation dose to as low as reasonably achievable. Comparison: 10/31/2020 Findings: Punctate calcifications are present with in the left kidney with a small cluster of punctate stones located in the lower pole collecting system. These findings are present a combination of residual stones and treated stone within the lower pole. No hydronep hrosis. Similar appearance of left parapelvic cysts and extrarenal pelvis. Right kidney normal. The ureters are normal. Normal bladder. There is a simple left ovarian cyst measuring 3.5 cm. Right ovary is unremarkable. The uterus is anteverted. No large uterine fibroid. No pelvic free fluid or abscess. No free air or inflammatory change. Normal appendix. Large bowel normal. On series 2, image 69, there is a transient intussusc eption of the jejunum without mechanical obstruction. The adrenal glands are normal. The gallbladder is absent. Liver is unremarkable. Normal spleen. Lung bases are clear. Normal osseous structures. Impression: Jejunal intussusception without hvac design mechanical engineer al obstruction or inflammatory change. This likely represents an incidental transient phenomenon. One could consider a GI consult for further evaluation of this finding. No evidence of inflammatory bowel disease. Normal appendix. 3.5 cm simple left ovarian cyst. This is considered normal. Numerous punctate stone material through out the left kidney without hydronephrosis. Chronic left renal parapelvic cysts and extrarenal pelvis. No perinephric stranding to suggest infection/inflammation. Please note that all CT scans at this fa cility use dose modulation, iterative reconstruction, and/or weight-based dosing when appropriate to reduce radiation dose to as low as reasonably achievable. Dictated by Dwaine Little MD @ May 01 022 4:09PM (Electronically Signed) Elizabeth BARRIOS CT TRICHOMONAS, STONE, AND BACTERIAL VAGINOSIS BY RADHA (05/01/2022 2:10 PM CDT) [facility] Method Time Signature STONE SPECIES Negative Negative 05/02/2022 [facility] 12:39 PM CDT [facility] STONE Negative Negative 05/02/2022 [facility] GLABRATA 12:39 PM CDT [facility] TRICHOMONAS VVA Negative Negative 05/02/2022 [facility] 12:39 PM CDT [facility] BACTERIAL Negative Negative 05/02/2022 [facility] VAGINOSIS 12:39 PM CDT [facility] Specimen Anatomical Collection Method Collection Time Receive d Time (Source) Location / / Volume Laterality Other VAGINAL SWAB / Non-Blood / 05/01/2022 2:10 PM 022 2:44 Unknown Unknown CDT PM CDT Elizabeth BARRIOS MICROBIOLOGY Performing Organization Address City/State/ZIP Code Phon e Number [employer] [address] [place], [place] [address] [address] [facility]ATORY[facility] 1999 LABORATORY GC & CHLAMYDIA DNA PCR [[id number]] (05/01/2022 2:10 PM CDT) [facility] Method Time Signature CHLAMYDIA PROBE Negative 05/02/2022 [facility] 1:11 PM CDT [facility] N GONORRHOEAE Negative 05/02/2022 [facility] PRO[facility] 1:11 PM CDT [facility] Specimen Anatomical Collection Method Collection Time Receive d Time (Source) Location / / Volume Laterality Other VAGINAL SWAB / Non-Blood / 05/01/2022 2:10 PM 022 2:44 Unknown Unknown CDT PM CDT Elizabeth BARRIOS MICROBIOLOGY Performing Organization Address City/State/ZIP Code Phon e Number [employer] [address] [place] [address] LAB[facility]ATORY[facility] 1999 LABORATORY URINALYSIS MICROSCOPIC (05/01/2022 1:35 PM CDT) [facility] Signature RBC 0-2 0-2, None 05/01/2022 [facility] Seen /HPF 1:49 PM CDT [facility] WBC None Seen 0-2, 3-5, 05/01/2022 [facility] None Seen 1:49 PM CDT [facility] BACTERIA Few None 05/01/2022 [facility] Seen, 1:49 PM CDT [facility] Rare, Few CLINIC Bacteria/ HPF EPITHELIAL Few None 05/01/2022 [facility] CELLS Seen, Few 1:49 PM CDT [facility] Epi/HPF CLINIC Specimen Anatomical Collection Method Collection Time Receive d Time (Source) Location / / Volume Laterality Urine URINE SPECIMEN / Non-Blood / 05/01/2022 1:35 PM 05/01 1:40 Unknown Unknown CDT PM CDT Elizabeth BARRIOS URINE Performing Organization Address City/[facility]/ZIP Code Phon e Number [facility] [address] [place], [place] [id number] URINE CULTURE (05/01/2022 1:35 PM CDT) [facility] Signature CULTURE <10,000 CFU/mL 05/03/2022 [facility] multiple 8:47 AM CDT [facility]ANC[facility] organisms TRAL LABORATORY Specimen Anatomical Collection Method Collection Time Receive d Time (Source) Location / / Volume Laterality Urine URINE SPECIMEN / Non-Blood / 05/01/2022 1:35 PM 05/01 1:40 Unknown Unknown CDT PM CDT Elizabeth BARRIOS MICROBIOLOGY Performing Organization Address City/State/ZIP Code Phon e Number [facility] [address] [place] [address] LABORATORY-CENTRAL 2000 LABORATORY (ABNORMAL) UA W/ SEDIMENT EXAM REFLEXED PER CRITERIA (05/01/2022 1:35 PM CDT) [facility] Signature COLOR Yellow Yellow Color 05/01/2022 [facility] 1:49 PM CDT [facility] CLARITY Clear Clear 05/01/2022 [facility] Clarity 1:49 PM CDT [facility] SPECIFIC <=1.005 (A) 1.010, 05/01/2022 [facility] GRAVITY,URINE 1.015, 1:49 PM CDT [facility] 1.020, 1.025 CLINIC PH,URINE 6.0 6.0, 7.0, 05/01/2022 [facility] 8.0, 5.5, 1:49 PM CDT [facility] 6.5, 7.5, CLINIC 8.5 UROBILINOGEN, Normal Normal EU/dl 05/01/2022 [facility] QUALITATIVE 1:49 PM CDT [facility] PROTEIN, Negative Negative 05/01/2022 [facility] URINE mg/dL 1:49 PM CDT [facility] GLUCOSE, Negative Negative 05/01/[address] [facility] URINE mg/dL 1:49 PM CDT [facility] KETONES,URINE Negative Negative 05/01/2022 [facility] mg/dL 1:49 PM CDT [facility] BILIRUBIN,URI Negative Negative 05/01/2022 [facility] 1:49 PM CDT [facility] OCCULT Trace (A) Negative 05/01/[address] [facility] BLOOD,URINE 1:49 PM CDT [facility] NITRITE Negative Negative 05/01/2022 [facility] 1:49 PM CDT [facility] LEUKOCYTE Negative Negative 05/01/[address] [facility] ESTERASE 1:49 PM T [facility] Specimen Anatomical Collection Method Collection Time Receive d Time (Source) Location / / Volume Laterality Urine URINE SPECIMEN / Non-Blood / 05/01/2022 1:35 PM 05/01 1:40 Unknown Unknown CDT PM CDT Elizabeth BARRIOS URINE Performing Organization Address City/State/ZIP Code Phon e Number [facility] [address] [facility] [place] [address] from Last 3 Months Insurance Payer Benefit Plan / Subscriber ID Effective Dates Phone Addre ss Type Group ASHLYN GOLDBERG [place] [id number] 2021-Present [address] [place] [address] AP T 148 y (Home) [address] [place] [address] Advance Directives Latest Code Status on File Code Status Date Activated Date Inactivated Comments Full Code 01/12/2021 7:53 AM 01/12/2021 3:48 PM Code Status Discussion: Not Discussed Full Code 01/24/2018 1:12 PM 01/24/2018 10:53 PM Full Code 11/07/2017 11:55 AM 11/07/2017 5:54 PM Full Code 02/23/2017 10:45 AM 02/25/2017 3:20 PM Code Status Discussion: Not Discussed Full Code 02/23/2017 3:56 AM 02/23/2017 10:45 AM Code Status Discussion: Not Discussed Care Teams Electrical Continuity Inspector Relationship Specialty Start Date End Date Vicki Rose MD PCP - General Family Practice 10/18/19 [address] [place] [address]
[2022-06-07 18:07] LABS: Bacteria Urine Few; Squamous Epithelial Cell Urine Few (None-Few)
[2022-06-07 18:45] VITALS: BP 118/85
[2022-06-07] MEDS: KETOROLAC 30 MG/ML inj IM (18:45)
[2022-06-08 14:58] LABS: WBC Urine 0-2 (0-5)
== END 2022-06-07 18:57 | disposition home or self-care (01) ==
PROVIDERS: Emergency Provider Family Medicine; PCP Family Medicine
DX: N20.1 Calculus of ureter (principal)
CPT/HCPCS: 36415; 74176; 80053; 81003; 81015; 83690; 84703; 85025; 86140; 87086; 96372; 99283; 99284; A9270; J1885

== ENCOUNTER 2022-09-04 18:28 | Emergency (ER) | payer MEDICAID, SELFPAY ==
[2022-09-04 18:36] VITALS: BP 110/86; RESP 16; TEMP 36.8; O2SAT 97; BMI 40.8
--- NOTE | 2022-09-04 18:53 | ED_ITS ---
HPI - Abdominal Pain General Time Seen by Provider: 18:53 Date Seen: 09/04/22 Chief Complaint: Abdominal Pain Stated Complaint: GI tract pressure Time Seen by Provider: 09/04/22 18:53 Source: patient, family, RN notes reviewed and old records reviewed Mode of arrival: ambulatory Limitations: no limitations History of Present Illness HPI narrative: Patient is a very pleasant 27-year-old female with a history of subacute abdominal pain questionable to Junel intussusception, who comes to the emergency room requesting at abdominal CT for continuing abdominal pain. Patient notes the onset of vomiting and abdominal pressure associated with severe constipation in June of 2022. She states that she did not have a bowel movement for a month. She was sent to the emergency room for evaluation and she states that a CT was not done at that time. She notes then seeing her primary Dr. Vera at the [facility] and had a CT are on August 28. A not obstructive jejunal intussusception was noted without inflammatory change. This was thought to represent an incidental transient phenomena. For a total of 3 milieu coordinator docs were seen by her and eventually she saw Dr. Dove, our surgeon. At that time patient was advised to return to the emergency room if she had continued pain. She notes that the pain has been intermittent but is almost always present. She shows me to had the most of the pain is in the epigastric area. However it does wrap into her pelvis and her left flank. In the beginning of this illness in June she had fevers but that has resolved. She states that there was still continued hot and cold flashes at headaches. Patient notes that Dr. 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 but the medications did not help. The medications included do Reginaldo acts as well as MiraLax. She does states that she was able to have a small amount of stool production. To this point she is not refer been referred to GI but was supposed to receive a phone call to schedule endoscopy today. Unfortunately she did not receive the phone call. Patient denies dysuria hematuria, blood in her stool, fever today, chest pain shortness of breath cough cold congestion or sore throat. Patient denies recent travel or antibiotic use. Related Data Home Medications Medication Instructions Recorded Confirmed albuterol sulfate 2.5 mg/3 mL 2.5 mg inhalation Q4H PRN 01/28/22 05/03/22 (0.083 %) solution for nebulization albuterol sulfate 90 mcg/actuation 1 puff inhalation PRN 01/28/22 aerosol inhaler (Ventolin HFA) buspirone 15 mg tablet 10 mg PO BID 01/28/22 05/03/22 cetirizine 10 mg tablet 10 mg PO Q12H 01/28/22 05/03/22 famotidine 20 mg tablet 20 mg PO Q12H 01/28/22 05/03/22 fluticasone propionate 50 2 spray intranasal DAILY 01/28/22 05/03/22 mcg/actuation nasal spray,suspension hydroxyzine pamoate 25 mg capsule 25 mg PO HS PRN 01/28/22 05/03/22 lamotrigine 100 mg tablet 100 mg PO DAILY 01/28/22 05/03/22 lamotrigine 25 mg tablet mg 01/28/22 meclizine 25 mg tablet mg 01/28/22 nystatin 100,000 unit/gram topical 1 applic topical PRN 01/28/22 cream ondansetron 4 mg disintegrating 4 mg PO PRN 01/28/22 tablet prazosin 1 mg capsule 1 mg PO HS 01/28/22 05/03/22 venlafaxine 150 mg 150 mg PO DAILY 01/28/22 05/03/22 capsule,extended release 24 hr venlafaxine 75 mg capsule,extended 75 mg PO DAILY 01/28/22 05/03/22 release 24 hr Previous Rx's Medication Instructions Recorded sucralfate 1 gram tablet (Carafate) 1 g PO QID PRN #60 tabs 05/03/22 Allergies Allergy/AdvReac Type Severity Reaction Status Date / Time amoxicillin Allergy Mild Verified 09/04/22 19:53 Penicillanic Sulfone BL Allergy Mild Verified 09/04/22 19:53 Beta-Lactam kiwi Allergy Verified 09/04/22 19:53 orange (food color) Allergy Verified 09/04/22 19:53 Review of Systems Status of ROS Reports: 10 or more systems reviewed and unremarkable except as noted in History and below Const Denies: fever or fatigue Eyes Denies: change in vision ENMT Denies: throat pain, neck pain, throat swelling or hoarseness Cardio Denies: chest pain, palpitations, swelling of feet/ankles or shortness of breath with exertion Resp Denies: shortness of breath or cough GI Reports: abdominal pain and nausea; Denies: diarrhea Denies: painful urination or urinary frequency Musculo Denies: neck pain Integ/Breast Denies: rash Endo Denies: fatigue Allergy/Immuno Denies: throat swelling PFSH [facility] Medical History Asthma Kidney stones Social History Smoking Status: Current every day smoker Do you use any of these nicotine containing products: E-Cigarettes Second hand tobacco smoke exposure: No How often do you have a drink containing alcohol: monthly or less How many standard drinks containing alcohol do you have on a typical day: 1 or 2 How often do you have six or more drinks on one occasion: Never AUDIT-C Alcohol total score: 1 Non-prescribed substance use: marijuana (any form) Non-prescribed substance use details: Medical marijuana - smokes it service: No Exam Narrative: Exam Narrative: Patient is alert and oriented. She is nontoxic in appearance. She has a friend here today and she they are interactive and laughing. Eyes are clear. Speech is normal. Neck is supple without lymphadenopathy. Heart with regular rate and rhythm and lungs are clear. Hypersensitivity palpation response to percussion over left kidney. No evidence of blisters or lesions noted on back. Abdomen is soft. No masses are palpated. She has got tenderness [id number] and left lower and left upper quadrant. No rebound tenderness is noted Lower extremities without edema calf pain or swelling Const: Vital Signs, click to edit/add: Vital Signs - 24 hr 09/04/22 18:36 09/04/22 20:04 Temperature 98.3 F Pulse Rate [Pulse Oximeter] 77 Respiratory Rate 16 16 Blood Pressure [Le ft Upper Arm] 110/86 111/53 L Pulse Oximetry 97 100 Oxygen Delivery Me thod Room Air Room Air Documenting provider has reviewed patient's vital signs: yes Course Course Hospital Course: Patient presents to the emergency room requesting CT as suggested by our surgeon. At this time patient is alert oriented with reassuring vital signs. I did speak to patient about risk of radiation and perhaps a pause to see what her lab results look like but she is requesting CT. Because her surgeon suggested this and on the CT there was jejunal intussusception without mechanical obstruction I will proceed. Patient states that she understands the risk of radiation. Will also include CBC, comprehensive panel, CRP, lipase and urinalysis. Reevaluation(s) Reevaluation #1: Patient noted to be stable 0 with normal vital signs throughout her stay. Vital Signs Vital signs: Initial Vital Signs Temperature 98.3 F 09/04/22 18:36 Temperature Source Temporal Artery Scan 09/04/22 18:36 Pulse Rhythm 09/04/22 18:36 Pulse Strength 3+ Normal 09/04/22 18:36 Respiratory Rate 16 09/04/22 18:36 Blood Pressure 110/86 09/04/22 18:36 Blood Pressure Mean 94 09/04/22 18:36 Pulse Oximetry 97 09/04/22 18:36 Oxygen Delivery Method 09/04/22 18:36 Vital Signs Temperature 98.3 F 09/04/22 18:36 Respiratory Rate 16 09/04/22 18:36 Blood Pressure 110/86 09/04/22 18:36 Pulse Oximetry 97 09/04/22 18:36 Oxygen Delivery Method 09/04/22 18:36 Temperature 98.3 F 09/04/22 18:36 Pulse Rate 77 09/04/22 20:04 Respiratory Rate 16 09/04/22 20:04 Blood Pressure 111/53 L 09/04/22 20:04 Pulse Oximetry 100 09/04/22 20:04 Oxygen Delivery Method 09/04/22 20:04 MDM - Abdominal Pain MDM Narrative Medical decision making narrative: 1. Abdominal pain-of none known etiology. Patient has a normal CT tonight with reassuring white count and CRP. LFTs also reassuring at this time. They were done is not appear to be evidence of cholecystitis, hepatitis, diverticulitis, colitis based on labs, exam and CT. Would suggest patient follow-up for e ndoscopy and/or colonoscopy with [facility]. If she is unable to be seen a possible alternative would be [facility]. 2. Disposition- home at this time. Continue MiraLax. Return for worsening symptoms. It is noted that patient has 1+ ketones. L of saline was given here in the ED and patient is encouraged to drink fluids. Medical Records Attestation: I reviewed the patient's medical records. Lab Data Attestation: I reviewed the patient's lab results. Labs: Lab Results 09/04/22 09/04/22 09/04/22 Range/Units 19:20 19:20 19:20 WBC 9.39 (4.50-11.00) K/uL RBC 5.23 H (4.00-5.20) m/uL Hgb 15.7 (12.0-16.0) gm/dL Hct 46.8 (33.0-51.0) % MCV 90 (80-100) fL MCH 30 (26-34) pg MCHC 34 (32-36) gm/dL RDW Coeff of Tee 12.8 (11.5-15.5) % Plt Count 259 (140-440) K/uL Neut % (Auto) 49.6 (42.0-72.0) % Lymph % (Auto) 41.3 (20-44) % [place] % (Auto) 6.8 (0.0-11.0) % Eos % (Auto) 1.9 (0.0-7.0) % Baso % (Auto) 0.3 (0.0-3.0) % Neut # (Auto) 4.65 (1.7-7.0) K/uL Lymph # (Auto) 3.88 H (0.90-2.90) K/uL [place] # (Auto) 0.60 (0.00-0.90) K/UL Eos # (Auto) 0.18 (0.00-0.50) K/uL Baso # (Auto) 0.03 (0.00-0.30) K/uL Sodium 139 (135-149) mmol/L Potassium 3.8 (3.6-5.1) mmol/L Chloride 105 (96-114) mmol/L Carbon Dioxide 28 (20-32) mmol/L BUN 10 (5-24) mg/dL Creatinine 0.7 (0.5-1.5) mg/dL Estimated Creat Clear 165.58 Estimated GFR 120 ml/min Glucose 88 (60-115) mg/dL Calcium 9.4 (8.4-10.6) mg/dL Total Bilirubin 0.5 (0.1-1.5) mg/dL AST 25 (12-35) U/L ALT 32 (4-35) U/L Alkaline Phosphatase 77 (40-150) U/L C-Reactive Protein < 0.5 L (0.5-1.0) mg/dL Total Protein 7.2 (6.0-8.3) g/dL Albumin 4.4 (3.3-5.0) g/dL Lipase 58 (23-300) U/L Urine Color Yellow (Yellow) Urine Appearance Cloudy A (Clear) Urine pH 6.0 (5.0-8.5) Ur Specific [place] 1.025 (1.000-1.030) Urine Protein Negative (Negative) Urine Glucose (UA) Negative (Negative) Urine Ketones 1+ A (Negative) Urine Blood Negative (Negative) Urine Nitrite Negative (Negative) Urine Bilirubin 1+ A (Negative) Urine Urobilinogen 0.2 (0.2-1.0) Ur Leukocyte Esterase Negative (Negative) Urine RBC 0-2 (0-2) Urine WBC 2-5 (0-5) Ur Squamous Epith Cells Moderate A (None-Few) Urine Bacteria Moderate A (None) Urine HCG, Qual Negative (Negative) Imaging Data CT scan - abdomen: Attestation: I have reviewed the pertinent imaging results. Radiologist's impression: Lower chest: Unremarkable. Liver: Unremarkable. Normal in size and attenuation. No suspicious masses. Gallbladder and bile ducts: Cholecystectomy. Pancreas: Unremarkable. No mass or inflammation. Spleen: Unremarkable. Normal in size. No masses. Adrenal glands: Unremarkable. No nodules. Kidneys: Chronic mild left-sided hydronephrosis to the level of the UPJ. No suspicious masses, or stones. GI tract: Mild colonic stool burden. Normal in caliber. No sign of mass or inflammation. Normal appendix. Vasculature: Abdominal aorta is normal in caliber. Mesenteric arteries are patent. Lymph nodes: No lymphadenopathy. Peritoneum/Abdominal Wall: Tiny fat containing umbilical hernia. No sign of mass or infiltration. No free air or significant free fluid. Pelvis: Unremarkable. Bones: Unremarkable for age. IMPRESSION: No acute intra-abdominal/pelvic abnormality. Discharge Plan Discharge Prescriptions: No Action venlafaxine 75 mg capsule,extended release 24hr 75 mg PO DAILY Label Comments: Take 1 capsule by mouth in combination with 150mg capsule for a total daily dose of 225mg. Take with food albuterol sulfate 2.5 mg /3 mL (0.083 %) solution for nebulization 2.5 mg inhalation Q4H PRN Label Comments: Inhale 3 mL (2.5 mg) via a nebulizer every 4 hours if needed for Shortness of Breath cetirizine 10 mg tablet 10 mg PO Q12H Label Comments: TAKE ONE TABLET BY MOUTH ONE TIME DAILY prazosin 1 mg capsule 1 mg PO HS Label Comments: TAKE ONE CAPSULE BY MOUTH ONE TIME DAILY AT BEDTIME venlafaxine 150 mg capsule,extended release 24hr 150 mg PO DAILY Label Comments: Take 1 capsule once daily with food with the 75 mg capsule for a total daily dose of 225 mg lamotrigine 25 mg tablet Label Comments: Week 1 & 2: Take 1 tablet (25mg) by mouth once daily; Week 3 & 4: Take 2 tablets (50mg) by mouth once daily; Week 5: Switch to the 100mg tab famotidine 20 mg tablet 20 mg PO Q12H Label Comments: TAKE ONE TABLET BY MOUTH TWICE DAILY meclizine 25 mg tablet Label Comments: TAKE ONE TABLET BY MOUTH THREE TIMES DAILY NEEDED for vertigo nystatin 100,000 unit/gram cream 1 applic TOPICAL PRN Label Comments: Apply topically to affected area(s) 2 times daily. albuterol sulfate [Ventolin HFA] 90 mcg/actuation HFA aerosol inhaler 1 puff INHALATION PRN Label Comments: INHALE TWO PUFFS BY MOUTH EVERY SIX HOURS NEEDED FOR PERSISTANT COUGH. ondansetron 4 mg tablet,disintegrating 4 mg PO PRN Label Comments: Place 1 Tablet (4 mg) on the tongue every 8 hours if needed for Nausea/Vomiting. fluticasone propionate 50 mcg/actuation spray,suspension 2 spray INTRANASAL DAILY Label Comments: Inhale 2 Sprays to both nostrils once daily lamotrigine 100 mg tablet 100 mg PO DAILY Label Comments: TAKE ONE TABLET BY MOUTH ONE TIME DAILY buspirone 15 mg tablet 10 mg PO BID Label Comments: TAKE ONE TABLET BY MOUTH TWICE DAILY hydroxyzine pamoate 25 mg capsule 25 mg PO HS PRN Label Comments: TAKE ONE OR TWO CAPSULES BY MOUTH AT BEDTIME NEEDED for anxiety sucralfate [Carafate] 1 gram tablet 1 g PO QID PRNQty: 60 0RF Follow Up/Referrals: Vicki Rose MD [Primary Care Provider] -
--- NOTE | 2022-09-04 19:08 | CRLHL7_ITS ---
For Patients: As a result of the Century Cures Act, medical imaging exams and procedure reports are released immediately into your electronic medical record. You may view this report before your referring provider. If you have questions, please contact your health care provider. INDICATION: Left lower quadrant pain. TECHNIQUE: CT abdomen and pelvis acquired with 95 cc Isovue 370 IV contrast. COMPARISON: June 07, 2022. FINDINGS: Lower chest: Unremarkable. Liver: Unremarkable. Normal in size and attenuation. No suspicious masses. Gallbladder and bile ducts: Cholecystectomy. Pancreas: Unremarkable. No mass or inflammation. Spleen: Unremarkable. Normal in size. No masses. Adrenal glands: Unremarkable. No nodules. Kidneys: Chronic mild left-sided hydronephrosis to the level of the UPJ. No suspicious masses, or stones. GI tract: Mild colonic stool burden. Normal in caliber. No sign of mass or inflammation. Normal appendix. Vasculature: Abdominal aorta is normal in caliber. Mesenteric arteries are patent. Lymph nodes: No lymphadenopathy. Peritoneum/Abdominal Wall: Tiny fat containing umbilical hernia. No sign of mass or infiltration. No free air or significant free fluid. Pelvis: Unremarkable. Bones: Unremarkable for age. IMPRESSION: No acute intra-abdominal/pelvic abnormality. Please note that all CT scans at this facility use dose modulation, iterative reconstruction, and/or weight-based dosing when appropriate to reduce radiation dose to as low as reasonably achievable. Dictated by Zeeshan Ramírez MD @ 09/04/2022 8:11:34 PM (Electronically Signed)
[2022-09-04] MEDS: 0.9 % SODIUM CHLORIDE 1000 ml 1,000 ML IV (19:27)
[2022-09-04 19:31] LABS: Appearance Urine Cloudy (Clear); Bilirubin Urine 1+ (Negative); Blood Urine Negative (Negative); Color Urine Yellow (Yellow); Glucose Urine Negative (Negative); Ketones Urine 1+ (Negative); Leukocyte Esterase Urine Negative (Negative); Nitrite Urine Negative (Negative); Protein Urine Negative (Negative); Specific Gravity Urine 1.025 (1.000-1.030); Urobilinogen Urine 0.2 (0.2-1.0)
[2022-09-04 19:33] LABS: Ur HCG Qualitative* Negative (Negative)
[2022-09-04 19:35] LABS: Basophils Absolute Auto 0.03 K/uL (0.00-0.30); Basophils Percent Auto 0.3 % (0.0-3.0); Eosinophils Absolute Auto 0.18 K/uL (0.00-0.50); Eosinophils Percent Auto 1.9 % (0.0-7.0); Hematocrit 46.8 % (33.0-51.0); Hemoglobin* 15.7 gm/dL (12.0-16.0); Immature Granulocytes Abs Auto 0.01 K/uL (0.00-0.30); Immature Granulocytes Pct Auto 0.1 %; Lymphocytes Absolute Auto 3.88 K/uL (0.90-2.90); Lymphocytes Percent Auto 41.3 % (20-44); Mean Corpuscular HGB Conc 34 gm/dL (32-36); Mean Corpuscular Hemoglobin 30 pg (26-34); Mean Corpuscular Volume 90 fL (80-100); Monocytes Percent Auto 6.8 % (0.0-11.0); Neutrophils Absolute Auto 4.65 K/uL (1.7-7.0); Neutrophils Percent Auto 49.6 % (42.0-72.0); Platelet Count* 259 K/uL (140-440); RDW Coefficient of Variation % 12.8 % (11.5-15.5); Red Blood Count 5.23 m/uL (4.00-5.20); White Blood Count* 9.39 K/uL (4.50-11.00)
[2022-09-04 19:36] LABS: Slide Review Reflex No
[2022-09-04 19:44] LABS: Albumin* 4.4 g/dL (3.3-5.0); Chloride* 105 mmol/L (96-114); Sodium* 139 mmol/L (135-149)
[2022-09-04 19:45] LABS: Potassium* 3.8 mmol/L (3.6-5.1)
[2022-09-04 19:46] LABS: Bacteria Urine Moderate; Creatinine* 0.7 mg/dL (0.5-1.5); Est. Creatinine Clearance* 165.58; Estimated Glomerular Filt Rate 120 ml/min; RBC Urine 0-2 (0-2); Squamous Epithelial Cell Urine Moderate (None-Few)
[2022-09-04 19:47] LABS: Alanine Aminotransferase* 32 U/L (4-35); Alkaline Phosphatase* 77 U/L (40-150); Aspartate Amino Transferase* 25 U/L (12-35); Bilirubin Total* 0.5 mg/dL (0.1-1.5); Blood Urea Nitrogen* 10 mg/dL (5-24); Carbon Dioxide* 28 mmol/L (20-32); Lipase* 58 U/L (23-300); Total Protein* 7.2 g/dL (6.0-8.3)
[2022-09-04 19:48] LABS: Calcium* 9.4 mg/dL (8.4-10.6); Glucose* 88 mg/dL (60-115)
[2022-09-04 19:58] LABS: C Reactive Protein* < 0.5 mg/dL (0.5-1.0)
[2022-09-04 20:04] VITALS: BP 111/53; PULSE 77; RESP 16; O2SAT 100
== END 2022-09-04 20:50 | disposition home or self-care (01) ==
PROVIDERS: Emergency Provider Family Medicine; PCP Family Medicine
DX: R10.9 Unspecified abdominal pain (principal)
CPT/HCPCS: 36415; 74177; 80053; 81001; 81025; 83690; 85025; 86140; 87086; 99283; 99284; J7030; Q9967

== ENCOUNTER 2022-09-16 11:21 | Outpatient (CLI) | payer MEDICAID, SELFPAY ==
--- NOTE | 2022-09-16 12:08 | W.ANESCHARGE ---
Anesthesia Charges Start Date/Time Anesthesia Start Date: 09/16/22 Anesthesia Start Time: 12:22 Stop Date/Time Anesthesia Stop Date: 09/16/22 Anesthesia Stop Time: 12:46
--- NOTE | 2022-09-16 12:50 | W.ANESCHARGE ---
Anesthesia Charges Start Date/Time Anesthesia Start Date: 09/16/22 Anesthesia Start Time: 12:22 Stop Date/Time Anesthesia Stop Date: 09/16/22 Anesthesia Stop Time: 12:46
--- NOTE | 2022-10-08 11:53 | W.ANESCHARGE ---
Anesthesia Charges Start Date/Time Anesthesia Start Date: 09/16/22 Anesthesia Start Time: 12:22 Stop Date/Time Anesthesia Stop Date: 09/16/22 Anesthesia Stop Time: 12:46
== END 2022-09-16 11:22 | disposition home or self-care (01) ==
LOC: OP CLINIC 11:22
PROVIDERS: PCP Family Medicine; Visit Provider Surgery
DX: R13.10 Dysphagia, unspecified (principal); K44.9 Diaphragmatic hernia without obstruction or gangrene
CPT/HCPCS: 00731; 43239; 88305

== ENCOUNTER 2022-09-16 19:48 | Emergency (ER) | payer MEDICAID, SELFPAY ==
[2022-09-16 19:55] VITALS: BP 110/73; PULSE 74; RESP 18; TEMP 36.6; O2SAT 98; BMI 41.8
--- NOTE | 2022-09-16 20:16 | CRLHL7_ITS ---
For Patients: As a result of the Century Cures Act, medical imaging exams and procedure reports are released immediately into your electronic medical record. You may view this report before your referring provider. If you have questions, please contact your health care provider. INDICATION: Chest pain. TECHNIQUE: Chest 1 views. COMPARISON: None. FINDINGS: Cardiovascular and mediastinum: Heart size and vasculature are normal in caliber and appearance. Lungs and pleural spaces: Lungs are clear. No sign of infiltrate or mass. No sign of pleural effusion. No pneumothorax. Bones and soft tissues: No significant findings. IMPRESSION: No acute or significant findings. Dictated by Zeeshan Ramírez MD @ 09/16/2022 8:58:30 PM (Electronically Signed)
--- NOTE | 2022-09-16 20:22 | ED_ITS ---
HPI - General Adult General Chief complaint: Shortness of Breath/Dyspnea Stated complaint: Tightness in Chest/Throat Post Scope Time Seen by Provider: 09/16/22 19:53 History of Present Illness HPI narrative: 27-year-old young woman here with significant other with concern of chest discom fort. Says she feels cold in her chest, some chest pressure and coldness in good portions of her body, her abdomen. Long-standing history of constipation, chronic abdominal pain, jejunal intussusception. No fever. Early this morning did have an EGD. It sounds as though this was uncomplicated. She reports a finding of a small hiatal hernia. She is having some soreness with swallowing, tightness. She recovered from anesthesia and ambulated home without difficulty. Underlying history of asthma but not wheezing. Related Data Home Medications Medication Instructions Recorded Confirmed albuterol sulfate 2.5 mg/3 mL 2.5 mg inhalation Q4H PRN 01/28/22 05/03/22 (0.083 %) solution for nebulization albuterol sulfate 90 mcg/actuation 1 puff inhalation PRN 01/28/22 aerosol inhaler (Ventolin HFA) buspirone 15 mg tablet 10 mg PO BID 01/28/22 05/03/22 cetirizine 10 mg tablet 10 mg PO Q12H 01/28/22 05/03/22 famotidine 20 mg tablet 20 mg PO Q12H 01/28/22 05/03/22 fluticasone propionate 50 2 spray intranasal DAILY 01/28/22 05/03/22 mcg/actuation nasal spray,suspension hydroxyzine pamoate 25 mg capsule 25 mg PO HS PRN 01/28/22 05/03/22 lamotrigine 100 mg tablet 100 mg PO DAILY 01/28/22 05/03/22 lamotrigine 25 mg tablet mg 01/28/22 meclizine 25 mg tablet mg 01/28/22 nystatin 100,000 unit/gram topical 1 applic topical PRN 01/28/22 cream ondansetron 4 mg disintegrating 4 mg PO PRN 01/28/22 tablet prazosin 1 mg capsule 1 mg PO HS 01/28/22 05/03/22 venlafaxine 150 mg 150 mg PO DAILY 01/28/22 05/03/22 capsule,extended release 24 hr venlafaxine 75 mg capsule,extended 75 mg PO DAILY 01/28/22 05/03/22 release 24 hr Previous Rx's Medication Instructions Recorded sucralfate 1 gram tablet (Carafate) 1 g PO QID PRN #60 tabs 05/03/22 Allergies Allergy/AdvReac Type Severity Reaction Status Date / Time amoxicillin Allergy Mild Verified 09/04/22 19:53 Penicillanic Sulfone BL Allergy Mild Verified 09/04/22 19:53 Beta-Lactam kiwi Allergy Verified 09/04/22 19:53 orange (food color) Allergy Verified 09/04/22 19:53 Review of Systems Status of ROS: Reports: 6 or more systems reviewed and unremarkable except as noted in History and below [facility] Medical History Asthma Kidney stones Social History Smoking Status: Current every day smoker Do you use any of these nicotine containing products: E-Cigarettes Second hand tobacco smoke exposure: No How often do you have a drink containing alcohol: monthly or less How many standard drinks containing alcohol do you have on a typical day: 1 or 2 How often do you have six or more drinks on one occasion: Never AUDIT-C Alcohol total score: 1 Non-prescribed substance use: marijuana (any form) Non-prescribed substance use details: Medical marijuana - smokes it service: No Exam Narrative: Exam Narrative: Pleasant. Huddled under fleece. Vitals are noted to be normal. She is not tachypneic or labored in her breathing. Seems mildly anxious. Easily conversant. Cranial nerves 2-12 intact. Lungs appear to be clear. There is no supraclavicular crepitus. Heart in a regular rate and rhythm without murmur rub or gallop. Abdomen with generalized soreness to palpation. Overweight soft. No peritoneal signs. Extremities are well perfused. She has Auth out edema. Oropharynx is moist. Mild erythema in the posterior oropharynx. Not inconsistent with recent scope. There is no asymmetry. Swallowing mechanism appears to be fluid. Const: Vital Signs, click to edit/add: Vital Signs - 24 hr 09/16/22 19:55 Temperature 98 F Pulse Rate [Pulse Oximeter] 74 Respiratory Rate 18 Blood Pressure [Le ft Upper Arm] 110/73 Pulse Oximetry 98 Oxygen Delivery Me thod Room Air Documenting provider has reviewed patient's vital signs: yes Course Vital Signs Vital signs: Initial Vital Signs Temperature 98 F 09/16/22 19:55 Temperature Source Temporal Artery Scan 09/16/22 19:55 Pulse Rate 74 09/16/22 19:55 Respiratory Rate 18 09/16/22 19:55 Blood Pressure 110/73 09/16/22 19:55 Blood Pressure Mean 85 09/16/22 19:55 Pulse Oximetry 98 09/16/22 19:55 Oxygen Delivery Method 09/16/22 19:55 Vital Signs Temperature 98 F 09/16/22 19:55 Pulse Rate 74 09/16/22 19:55 Respiratory Rate 18 09/16/22 19:55 Blood Pressure 110/73 09/16/22 19:55 Pulse Oximetry 98 09/16/22 19:55 Oxygen Delivery Method 09/16/22 19:55 Temperature 98 F 09/16/22 19:55 Pulse Rate 74 09/16/22 19:55 Respiratory Rate 18 09/16/22 19:55 Blood Pressure 110/73 09/16/22 19:55 Pulse Oximetry 98 09/16/22 19:55 Oxygen Delivery Method 09/16/22 19:55 Medical Decision Making MDM Narrative Medical decision making narrative: I presume some degree of globus given her recent procedure. Did discuss this with her. I would evaluate yet for pneumothorax or pneumomediastinum. Anxiety might be related. Chest x-ray pending. Chest x-ray by my read looks to be normal without pneumomediastinum pneumothorax or infiltrate. Trachea midline. On reassessment appears to feel better. Says she just wanted to be checked out. I do not think that the degree of abdominal discomfort presenting here today warrants further workup said during the chronicity of this case; Cass's in agreement Discharge Plan Discharge Clinical Impression: Feeling of chest tightness Patient Disposition: Home w/ Parent or Adult Condition: Improved Additional Instructions: As I said I think you are safe to go home. Return for persistent increasing shortness of breath, marked increase in sore throat or abdominal pain. Fever. This discomfort in the throat can persist for a few days sometimes. A variation of this is known as globus phenomenon. Might try anesthetic throat sprays or lozenges like Chloraseptic or Sucrets. Prescriptions: No Action venlafaxine 75 mg capsule,extended release 24hr 75 mg PO DAILY Label Comments: Take 1 capsule by mouth in combination with 150mg capsule for a total daily dose of 225mg. Take with food albuterol sulfate 2.5 mg /3 mL (0.083 %) solution for nebulization 2.5 mg inhalation Q4H PRN Label Comments: Inhale 3 mL (2.5 mg) via a nebulizer every 4 hours if needed for Shortness of Breath cetirizine 10 mg tablet 10 mg PO Q12H Label Comments: TAKE ONE TABLET BY MOUTH ONE TIME DAILY prazosin 1 mg capsule 1 mg PO HS Label Comments: TAKE ONE CAPSULE BY MOUTH ONE TIME DAILY AT BEDTIME venlafaxine 150 mg capsule,extended release 24hr 150 mg PO DAILY Label Comments: Take 1 capsule once daily with food with the 75 mg capsule for a total daily dose of 225 mg lamotrigine 25 mg tablet Label Comments: Week 1 & 2: Take 1 tablet (25mg) by mouth once daily; Week 3 & 4: Take 2 tablets (50mg) by mouth once daily; Week 5: Switch to the 100mg tab famotidine 20 mg tablet 20 mg PO Q12H Label Comments: TAKE ONE TABLET BY MOUTH TWICE DAILY meclizine 25 mg tablet Label Comments: TAKE ONE TABLET BY MOUTH THREE TIMES DAILY NEEDED for vertigo nystatin 100,000 unit/gram cream 1 applic TOPICAL PRN Label Comments: Apply topically to affected area(s) 2 times daily. albuterol sulfate [Ventolin HFA] 90 mcg/actuation HFA aerosol inhaler 1 puff INHALATION PRN Label Comments: INHALE TWO PUFFS BY MOUTH EVERY SIX HOURS NEEDED FOR PERSISTANT COUGH. ondansetron 4 mg tablet,disintegrating 4 mg PO PRN Label Comments: Place 1 Tablet (4 mg) on the tongue every 8 hours if needed for Nausea/Vomiting. fluticasone propionate 50 mcg/actuation spray,suspension 2 spray INTRANASAL DAILY Label Comments: Inhale 2 Sprays to both nostrils once daily lamotrigine 100 mg tablet 100 mg PO DAILY Label Comments: TAKE ONE TABLET BY MOUTH ONE TIME DAILY buspirone 15 mg tablet 10 mg PO BID Label Comments: TAKE ONE TABLET BY MOUTH TWICE DAILY hydroxyzine pamoate 25 mg capsule 25 mg PO HS PRN Label Comments: TAKE ONE OR TWO CAPSULES BY MOUTH AT BEDTIME NEEDED for anxiety sucralfate [Carafate] 1 gram tablet 1 g PO QID PRNQty: 60 0RF Follow Up/Referrals: Vicki Rose MD [Primary Care Provider] - Stand Alone Forms: [facility] Info Instructions
== END 2022-09-16 21:12 | disposition home or self-care (01) ==
PROVIDERS: Emergency Provider Family Medicine; PCP Family Medicine
DX: R07.89 Other chest pain (principal)
CPT/HCPCS: 71045; 99283

== ENCOUNTER 2023-07-16 17:52 | Emergency (ER) | payer MEDICAID, SELFPAY ==
[2023-07-16 17:57] VITALS: BP 116/81; PULSE 78; RESP 16; TEMP 36.6; O2SAT 95; BMI 38.6
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
--- OUTSIDE RECORDS SUMMARY | 2023-07-16 18:38 | XMS_ITS | Clinical Summary ---
Author Name Unknown Organization [employer] [facility] [employer] [facility] Address [place], [place] [address] Care Team Providers Care Wood Router Name Role Phone Vicki Rose MD Primary Care Provider [phone] Allergies Active Allergy Reactions Criticality Noted Date Comments Amoxicillin Hives,Throat Swelling/Closing High 08/22/2014 Patient tolerated cefazolin (Sep 2016) Diazabicyclooctane Nonbl Beta-Lactamase Inhibitors *Unknown Low 09/04/2022 Kiwi *Unknown 11/07/2017 Tongue marquez [place] (Food Color) *Unknown 09/04/2022 Fd And C Red No.22 (Eosin) Throat Swelling/Closing High 12/11/2016 Penicillins Throat Swelling/Closing High 10/23/2009 Throat swelling Patient tolerated cefazolin (Sep 2016) Medications Medication Sig Dispensed Refills Start Date End Date Status nebulizer accessories kitIndications:Mild intermittent asthma without complication For home use. Length of need: 99 1 Kit 0 03/15/2020 Active ibuprofen (MOTRIN ORAL) Take 200 mg by mouth every 6 hours if needed. Reported by pt 0 Active ketoconazole 2% topical (NIZORAL) creamIndications:Tin ea versicolor Apply topically to affected area(s) once daily. 120 g 5 02/08/2021 Active albuterol (PROVENTIL) 0.083 % neb solutionIndications: acute asthma attack Inhale 3 mL (2.5 mg) via a nebulizer every 4 hours if needed for Shortness of Breath 1st choice or Shortness of Breath 2nd choice. Inhale 2.5 mg via a nebulizer each time 3 mL 0 08/31/2021 Active ondansetron (ZOFRAN ODT) 4 mg disintegrating tabletIndications:Na usea and vomiting, unspecified vomiting type Place 1 Tablet (4 mg) on the tongue every 8 hours if needed for Nausea/Vomiting. 30 Tablet 0 08/31/2021 Active nystatin (MYCOSTATIN) creamIndications:Yea st infection of the skin Apply topically to affected area(s) 2 times daily. 30 g 5 10/26/2021 Active nystatin powder (MYCOSTATIN) powderIndications:Ye ast infection of the skin Apply 1 Strip topically to affected area(s) 3 times daily. 60 g 2 10/26/2021 Active cetirizine (ZYRTEC) 10 mg tabletIndications:Se asonal allergies TAKE ONE TABLET BY MOUTH ONE TIME DAILY 60 Tablet 0 11/25/2021 Active CPAPIndications:Obst ructive sleep apnea New CPAP machine for home use at pressure: 5-16 cmw , [...] Need: 99 months, Frequency of use: Daily 1 Each 01/01/2022 Active albuterol HFA (PRO-AIR; VENTOLIN; PROVENTIL) 90 mcg/actuation inhalerIndications:M ild intermittent asthma without complication INHALE TWO PUFFS BY MOUTH EVERY SIX HOURS NEEDED for persistent cough 36 g 0 01/14/2022 Active fluticasone (50 mcg per actuation) nasal solution (FLONASE)Indications :Seasonal allergies Inhale 2 Sprays to both nostrils once daily 16 g 0 01/12/2022 Active polyethylene glycoL (MIRALAX) 17 gram/scoop powderIndications:Ch ronic constipation Per instructions for bowel clean out 238 g 0 08/28/2022 Active bisacodyL (DULCOLAX) 5 mg delayed release tabletIndications:Ch ronic constipation Take 1 Tablet (5 mg) by mouth once daily. Take 2 tablets at start of bowel clean out. Then 1 tablet daily as needed. 10 Tablet 0 08/28/2022 Active clotrimazole-betamet hasone cream (LOTRISONE) 1-0.05 % creamIndications:Anup h of neck Apply topically to affected area(s) two times daily. Apply to neck lesion for 1-2 weeks until gone 15 g 0 08/28/2022 Active meclizine (ANTIVERT) 25 mg tabletIndications:Ve rtigo TAKE ONE TABLET BY MOUTH THREE TIMES DAILY NEEDED for vertigo 30 Tablet 0 10/21/2022 Active lubiprostone (AMITIZA) 24 mcg capsule TAKE ONE CAPSULE BY MOUTH TWICE DAILY WITH FOOD AND WATER.* 0 11/05/2022 Active Linzess 290 mcg cap capsule Take 290 mcg by mouth once daily. 0 03/21/2023 Active venlafaxine (EFFEXOR XR) 75 mg cp24 Extended-Release capsuleIndications:M oderate recurrent major depression (HC) Take 1 capsule with the 150mg capsule for a total daily dose of 225mg. 90 Capsule 1 05/31/2023 Active venlafaxine (EFFEXOR XR) 150 mg Extended-Release capsuleIndications:M oderate recurrent major depression (HC) Take 1 capsule by mouth once daily with food. take with the 75 mg capsule for a total daily dose of 225 mg. 90 Capsule 1 05/31/2023 Active famotidine (PEPCID) 20 mg tabletIndications:Ga stric reflux TAKE ONE TABLET BY MOUTH TWICE DAILY 180 Tablet 0 05/31/2023 Active lamoTRIgine (LAMICTAL) 100 mg tabletIndications:Mo derate recurrent major depression (HC) Take 1 Tablet (100 mg) by mouth once daily. 90 Tablet 1 05/30/2023 Active busPIRone (BUSPAR) 15 mg tabletIndications:Mo derate recurrent major depression (HC) Take 1 Tablet (15 mg) by mouth two times daily. 180 Tablet 1 05/30/2023 Active prazosin (MINIPRESS) 1 mg capsuleIndications:P TSD (post-traumatic stress disorder) Take 1 Capsule (1 mg) by mouth at bedtime. 90 Capsule 1 05/30/2023 Active hydrOXYzine HCL (ATARAX) 25 mg tabletIndications:An xiety Take 1/2 to 1 tablet by mouth twice daily as needed for anxiety/ sleep 60 Tablet 0 05/30/2023 Active Hospital, Clinic, or Other Facility Administered Medication Ordered Dose Route Frequency Start Date End Date Status etonogestrel subdermal implant (NEXPLANON) 1 EachIndications:Encounter for removal and reinsertion of Nexplanon 1 Each Sdrm Q 3 YEARS 03/24/2020 Active Active Problems Problem Noted Date Diagnosed Date Borderline personality disorder 12/08/2020 Posttraumatic stress disorder 12/17/2019 Severe episode of recurrent major depressive disorder, without psychotic features 12/17/2019 S/P section 02/25/2017 Pyelonephritis affecting 09/13/2016 ADHD/LD 12/05/2002 Asthma 12/05/2002 Ureteral polyp Resolved Problems Problem Noted Date Diagnosed Date Resolved Date Anxiety and depression 12/02/201812/16 MARCELO (generalized anxiety disorder) 12/02/2018 12/17/2019 History of attention deficit disorder 12/02/2018 12/17/2019 History of borderline personality disorder 12/02/2018 12/17/2019 Encounters Date Type Department Care Team Description 05/30/2023 1:00 PM NON PROFIT DIRECTOR Telemedicine [facility] [address] [place] [address] Elizabeth Meza NP Telehealth; Medication Management (Patient needs all meds renewed) 05/30/2023 Refill [facility] [address] [place] [address] Vicki Rose MD Refill Request (Famotidine) 05/30/2023 Refill [facility] [address] [place] [address] Elizabeth Meza NP Refill Request (Venlafaxine, Venlafaxine, Lamotrigine) 04/18/2023 Refill [facility] [address] [place] [address] Elizabeth Meza NP Refill Request (Lamotrigine) from Last 3 Months Immunizations Name Administration Dates Next Due DTaP 11/29/1998, 5,1993,10/29,1993 Hepatitis A (Peds) 09/09/2007,01/13/2007 Hepatitis B (Peds) 04/26/1994,1993, 994 Hib Conjugate, Unspecified 1993 Human Papilloma Virus Vaccine 05/23/2010, 010,11/11/2008 Inactivated Polio Vaccine 09/05/1994,,1993,08/01 Influenza, IIV3 (Age >=3 years) 04/22/20 12,04/17/2011,04/07/2009,06/01 Influenza, IIV4 03/15/2020, 9,03/24/2018,02/27,05/09/2014 Influenza, IIV4 (=>6mos) MDV 04/30/2017 Influenza,LAIV4 Live Intrana carey (Flumist) 05/23/2010,05/18/2007 MMR 11/29/1998,09/05/1994 Meningococcal Vaccine (Menactra) 01/13/2007 Meningococcal Vaccine (Menveo) 08/22/2011 Tdap 12/04/2016,05/09/2014,10/09/2004 Varicella Vaccine 01/13/2007,11/29/1998 Family History Medical History Relation Name Comments Good Health Brother Anxiety disorder Father Depression Father Neural tube defect Father Anxiety disorder Maternal Grandmother Cancer Maternal Grandmother Depression Maternal Grandmother Anxiety disorder Mother Depression Mother Good Health Mother Good Health Sister Mental illness Sister ?borderline v s bipolar. seeing therapist at school. Relation Name Status Comments Brother Alive Father Alive Maternal Grandmother Mother Alive Sister Alive Social History Tobacco Use Types Packs/Day Years Used Date Smoking Tobacco: Former Cigarettes 0 7 S tarted: 07/20/2016 Smokeless Tobacco: Never Tobacco Cessation:Counseling Given: Yes Comments:Very rare Alcohol Use Standard Drinks/Week Comments Yes 0 (1 standard drink = 0.6 oz pur e alcohol) 3 drinks per year PHQ-2 Answer Date Recorded PHQ-2 TOTAL SCORE 1 02/21/2023 Social Connections Answer Date Recorded Frequency of Communication with Friends and Fami ly 0 03/24/2023 Alcohol Use Answer Date Recorded How often do you have a drink containing alcohol ? 1 02/21/2023 Average Number of Drinks Not on file 023 Frequency of Binge Drinking Not on file 02/04 Financial Resource Strain Answer Date R ecorded Difficulty of Paying Living Expenses 3 03/24/2023 Difficulty of Paying Living Expenses Not on file 03/24/2023 Food Insecurity Answer Date Recorded Worried About Running Out of Food in the Last Ye ar 1 03/24/2023 Transportation Needs Answer Date Record ed Lack of Transportation (Medical) 1 03/24/2023 Housing Stability Answer Date Recorded Unable to Pay for Housing in the Last Year 1 03/24/2023 Sex and Gender Information Value Date Recorded Sex Assigned at Female 05/08/2021 8:13 AM CDT Gender Identity Female 05/08/2021 8:13 AM CDT Sexual Orientation Bisexual 05/08/2021 8: 13 AM CDT Obstetrics History Para Term AB IAB SAB Ectopic Multiple Livin g Live Births 1 1 1 0 0 0 0 0 0 1 1 Date Outcome GA Total Labor Labor/2nd/3rd Weight Sex Delivery Anes PTL Veronica A1 A5 Name Cl in 02/23 Term 39w 6d F Vale ng Last Filed Vital Signs Vital Sign Reading Time Taken Comments Blood Pressure 103/66 03/28/2023 2:22 PM CDT Pulse 70 03/28/2023 2:22 PM CDT Temperature 37.3 ??C (99.1 ??F) 10/09/2022 8:48 AM CD T Respiratory Rate 16 07/09/2021 4:15 PM NON PROFIT DIRECTOR Oxygen Saturation 98% 03/28/2023 2:22 PM CDT Inhaled Oxygen Concentration - - Weight 89.3 kg (196 lb 14.4 oz) 03/28/2023 2:22 PM CDT Height 149 cm (4' 10.66) 09/13/2022 3:13 PM NON PROFIT DIRECTOR Body Mass Index 40.23 09/13/2022 3:13 PM NON PROFIT DIRECTOR Plan of Treatment Upcoming Encounters Date Type Department Care Team (Late st Contact Info) Description 07/22/2023 1:50 PM NON PROFIT DIRECTOR Office Visit [facility] [address] [place] [address] Rosa Elena De La Fuente MD [address] [place] [address] 11/28/2023 1:00 PM CDT Telemedicine [facility] [address] [place] [address] Hannagayle Elizabeth Mary, CASSI[facility] [address] [place] [address] Health Maintenance Due Date Last Done Comments COVID-19 vaccine series (#1) 1993 Pneumococcal series for age 6-64 (1 of 2 - PCV) 1999 Hepatitis C screening for ag e 18-79 2011 Influenza for age 9-49 03/07/2023 0, 04/19/2019, 03/24/2018, Additional history exists Pap test for age 21-65 03/15/2023 03/15/2020, 2013 BMI (ht and wt on same day) for age 18+ 09/14/2023 09/13/2022, 08/16/2022, 11/05/2021, Additional history exists Depression screening for age 12+ 02/22/2024 02/21/2023, 12/10/2022, 10/09/2022, Additional history exists Tetanus booster 12/04/2026 12/04/2016, 09/2013, 10/09/2004 Tdap Completed 12/04/2016, 09/2013, 10/09/2004 HIV for age 15-65 Completed 05/01/2022 Medical Devices Implanted Type Area Supervisor [employer] Device Identifier Shelf Expiration Date Model / Serial / Lot Stent Uret [id number] Contour - [id number] Implanted:Qty: 1 on 11/07/2017 by Peterson Garcia MD at [facility] Left: Ureter BS Urology 10/11/2019 [id number] / / [id number] Stent Uret [id number] Contour - [id number] Implanted:Qty: 1 on 01/12/2021 by Zeeshan Pruett MD at [facility] Left: Ureter [facility] Urology [id number] / / [id number] Advance Directives Latest Code Status on File Code Status Date Activated Date Inactivated Comments Full Code 01/12/2021 7:53 AM 01/12/2021 3:48 PM Question Answer Comments Code Status Discussion: Not Discussed Code Status History Code Status Date Activated Date Inactivated Comments Full Code 01/24/2018 1:12 PM 01/24/2018 10:53 PM Full Code 11/07/2017 11:55 AM 11/07/2017 5:54 PM Full Code 02/23/2017 10:45 AM 02/25/2017 3:20 PM Question Answer Comments Code Status Discussion: Not Discussed Full Code 02/23/2017 3:56 AM 02/23/2017 10:45 AM Question Answer Comments Code Status Discussion: Not Discussed Care Teams Wood Router Relationship Specialty Start Date End Date Vicki Rose MD [address] [place] [address] PCP - General Family Practice 10/18/19
== END 2023-07-16 18:43 | disposition home or self-care (01) ==
LOC: ED 18:36
PROVIDERS: Emergency Provider Emergency Medicine Emergency Medical Services; PCP Family Medicine
DX: F07.81 Postconcussional syndrome (principal)
CPT/HCPCS: 99283; 99284